=== PATIENT | female | born 1985 | race Caucasian/White ===

== ENCOUNTER 2016-07-19 23:47 | Emergency (ER) | payer MEDICARE, MEDICAID ==
[2016-07-20] MEDS ORDERED: ONDANSETRON 4 MG ORAL DISINTEGRATING TAB (S0181) As Ordered ONE (01:27)
[2016-07-20] MEDS ORDERED: KETOROLAC 30 MG/ML VIAL (J1885) As Ordered ONE (02:16)
[2016-07-20] MEDS ORDERED: diphenhydrAMINE 25 MG CAP As Ordered ONE (02:16)
--- NOTE | 2016-07-20 02:31 | EDDOCDS ---
Nurse's Notes [facility] Name: Maryjane Hutchinson Age: 31 yrs Sex: Female : 1985 Arrival Date: 07/19/2016 Time: 23:47 Bed I5 / M5 Private MD: [facility] - Adults Diagnosis: Nausea with vomiting, unspecified;Headache;Other chest pain-chest wall Presentation: 07/19 23:54 Presenting complaint: Patient states: Headache, vomiting, chest hurts, shaky. Adult [facility] Sepsis Screening: The patient does not have new or worsening altered mentation. Patient's respiratory rate is less than 22. Systolic blood pressure is greater than 100. Patient has a qSOFA score of 0- Negative Sepsis Screen. Suicide/Homicide risk assessment- the patient denies having any suicidal and/or homicidal ideations and does not present with any other emotional, behavioral or mental health complaints. Status: Patient is not a social service coordinator or dependent. Transition of care: patient was not received from another setting of care. 23:54 Acuity: BRENT Level 4 [facility] 23:54 Method Of Arrival: Walkin/Carried/Asstd [facility] Triage Assessment: 23:56 General: Appears uncomfortable, Behavior is cooperative. Pain: Location: head Pain mcp currently is 8 out of 10 on a pain scale. HIV screening NA for this visit Offered previously. Neurological: Reports headache. Respiratory: Airway is patent Respiratory effort is even, unlabored. GI: Reports nausea, vomiting. Derm: Skin is pink, warm & dry. 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 albuterol sulfate 90 mcg/actuation Inhl HFAA 1 puff every 4-6 hours as needed as needed - PMHx: Asthma; Bipolar disorder; - PSHx: Cholecystectomy; - Social history: Smoking status: Patient states was never smoker of tobacco. No barriers to communication noted, The patient speaks fluent Senegalese. - Family history: No immediate family members are acutely ill. - : The pt / caregiver states he / she is not on anticoagulants. Home medication list is obtained from the patient. - Exposure Risk Screening:: None identified. Screenin/05 02:29 Screening information is obtained from the patient. Fall risk: No risks identified. ld5 Assistance ADL's: requires no assistance with activities of daily living. Abuse/DV Screen: The patient / caregiver reports he/she is: not in a situation that causes fear, pain or injury. Nutritional screening: No deficits noted. Advance Directives: Currently, there is no health care proxy. home support is adequate. Assessment: 01:30 General: Appears in no apparent distress. Pain: Location: head Pain currently is 6 out ld5 of 10 on a pain scale. Neurological: Level of Consciousness is awake, obeys commands, Reports headache. Respiratory: Airway is patent Respiratory effort is even, unlabored. GI: Abdomen is non- distended Bowel sounds present X 4 quads. Abd is soft and non tender X 4 quads. Reports nausea. Derm: Skin is intact. 01:46 General: Pt sitting up in bed playing on phone. Water provided. Will monitor to assess ld5 tolerance. 02:29 General: Appears in no apparent distress, Pt reports decreased nausea. Pt declined ld5 Toradol injection. Provider aware. Vital Signs: 07/19 23:49 BP 116 / 79; Pulse 98; Resp 18 S; Temp 96.8(O); Pulse Ox 94% on R/A; Weight 81.65 kg gr2 (R); Height 5 ft. 4 in. (162.56 cm) (R); Pain 7/10; 0205 02:29 BP 121 / 81; Pulse 81; Resp 16; Temp 98; Pulse Ox 95% on R/A; ld5 07/19 23:49 Body Mass Index 30.90 (81.65 kg, 162.56 cm) gr2 Vitals: 07/19 23:49 Log In Time: July 19, 2016 at 23:49. gr2 ED Course: 23:48 Patient visited by Jhon Anderson. gr2 23:48 [facility] - [facility] is Private Physician. gr2 23:48 Patient moved to Waiting gr2 23:51 Patient visited by Jhon Anderson. gr2 23:51 Patient moved to Pre RCE gr2 23:55 Triage Initiated [facility] 23:56 Patient visited by Malaika Martinez RN. [facility] 07/20 00:01 Patient moved to MTA Wait cz 01:08 Patient moved to I5 / M5 cz 01:12 Sondra Velasco PA-C is PHCP. dt4 01:12 Ruiz Merchant DO is Attending Physician. dt4 01:12 Patient visited by Sondra Velasco PA-C. dt4 01:28 Patient visited by Melissa Odell PCA. cln 01:28 EKG done. (by ED staff). Reviewed by Sondra Velasco PA-C. cln 01:31 Patient visited by Shonda Hernandez RN. ld5 01:46 [facility] Payment Agreement was scanned into [employer] and attached to record. pm4 01:47 Patient visited by Shonda Hernandez RN. ld5 02:29 The patient / caregiver is instructed regarding the plan of care and ED course. Patient ld5 has correct armband on for positive identification. 02:29 No IV's were initiated during this patient's visit. No procedures done that require ld5 assistance. 02:31 Patient visited by Shonda Hernandez RN. ld5 Administered Medications: 01:29 Drug: Ondansetron ODT 4 mg [ondansetron 4 mg disintegrating tablet (1 tabs)] Route: PO; ld5 02:18 Drug: diphenhydrAMINE 25 mg [diphenhydramine 25 mg capsule (1 caps)] Route: PO; cz 02:21 Not Given (Patient Refused): ketorolac 60 mg IM once cz Order Results: There are currently no results for this order. Outcome: 02:24 Discharge ordered by Provider. dt4 02:29 Discharge Assessment: Patient awake, alert and oriented x 3. No cognitive and/or ld5 functional deficits noted. Patient verbalized understanding of disposition instructions. patient administered narcotics - no. The following High Risk Discharge criteria are identified: None. Discharged to home ambulatory, with family. Condition: stable. Discharge instructions given to patient, family, Instructed on discharge instructions, follow up and referral plans. medication usage, Demonstrated understanding of instructions, medications, Pt was receptive of discharge instructions/ teaching. Prescriptions given X 1. No special radiology studies were completed. Property :Personal belongings accompany Pt. 02:31 Patient left the ED. ld5 Signatures: Malaika Martinez RN RN mcp Zecher, Calvin, RN RN cz Dickerson, Laura, RN RN ld5 Jhon Anderson gr2 Sondra Velasco PA-C PA-C dt4 Jose R Melissa, SPRAY CEMENTER SPRAY CEMENTER cln Phillip Mcdonnell, Reg Reg pm4 MTDD
--- NOTE | 2016-07-20 02:31 | EDDOCDS ---
Physician Documentation [facility] Name: Maryjane Hutchinson Age: 31 yrs Sex: Female : 1985 Arrival Date: 07/19/2016 Time: 23:47 Bed I5 / M5 Private MD: [facility] - Adults Disposition: 07/20/16 02:24 Discharged to Home/Self Care. Impression: Nausea with vomiting, unspecified, Headache, Other chest pain - chest wall. - Condition is Stable. - Discharge Instructions: General Headache Without Cause, Nausea and Vomiting. - Prescriptions for ZOFRAN ODT 4 mg Oral - dissolve 1 tablet by ORAL route 3-4 times daily As needed do not chew, do not swallow whole; 20 tablet. - Medication Reconciliation, Local Pharmacy Hours form. - Follow up: Emergency Department; When: As needed; Reason: Worsening of conditions. Follow up: Private Physician; When: 2 - 3 days; Reason: Wound/Symptom Recheck, Recheck today's complaints, Continuance of care. - Problem is new. - Symptoms have improved. Historical: - Allergies: PENICILLINS (Hives); Tape; - Home Meds: 1. albuterol sulfate 90 mcg/actuation Inhl HFAA 1 puff every 4-6 hours as needed as needed - PMHx: Asthma; Bipolar disorder; - PSHx: Cholecystectomy; - Social history: Smoking status: Patient states was never smoker of tobacco. No barriers to communication noted, The patient speaks fluent Uzbek. - Family history: No immediate family members are acutely ill. - : The pt / caregiver states he / she is not on anticoagulants. Home medication list is obtained from the patient. - Exposure Risk Screening:: None identified. 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 4 in. (162.56 cm) (R); Pain 7/10; 07/20 02:29 BP 121 / 81; Pulse 81; Resp 16; Temp 98; Pulse Ox 95% on R/A; ld5 07/19 23:49 Body Mass Index 30.90 (81.65 kg, 162.56 cm) gr2 MDM: 01:21 Ondansetron ODT Oral Disintegrating Tablet 4 mg PO once ordered. dt4 01:21 ECG WITH READING ER PHYS+CARDIAG ordered. EDMS 01:39 Fluid Challenge ordered. dt4 01:40 Financial registration complete. pm4 01:46 [facility] Payment Agreement was scanned into [employer] and attached to record. pm4 02:09 ketorolac 60 mg IM once ordered. dt4 02:09 diphenhydrAMINE 25 mg PO once ordered. dt4 Administered Medications: 01:29 Drug: Ondansetron ODT 4 mg [ondansetron 4 mg disintegrating tablet (1 tabs)] Route: PO; ld5 02:18 Drug: diphenhydrAMINE 25 mg [diphenhydramine 25 mg capsule (1 caps)] Route: PO; cz 02:21 Not Given (Patient Refused): ketorolac 60 mg IM once cz Signatures: Dispatcher [employer] EDMS Malaika Martinez RN RN [facility] Shonda Hernandez RN RN ld5 Sondra Velasco, PANaty PA-C dt4 Phillip Mcdonnell, Anatoly Reg pm4 German Ko RN cz The chart was reviewed and I authenticate all verbal orders and agree with the evaluation and treatment provided.Attachments: 01:46 [facility] Payment Agreement pm4 MTDD
--- NOTE | 2016-07-20 06:42 | ECGEPIP ---
Stationary ECG Study 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
--- NOTE | 2016-07-22 03:32 | EDDOCDS ---
Physician Documentation [facility] Name: Maryjane Hutchinson Age: 31 yrs Sex: Female : 1985 Arrival Date: 07/19/2016 Time: 23:47 Bed I5 / M5 Private MD: [facility] - Adults Disposition: 07/20/16 02:24 Discharged to Home/Self Care. Impression: Nausea with vomiting, unspecified, Headache, Other chest pain - chest wall. - Condition is Stable. - Discharge Instructions: General Headache Without Cause, Nausea and Vomiting. - Prescriptions for ZOFRAN ODT 4 mg Oral - dissolve 1 tablet by ORAL route 3-4 times daily As needed do not chew, do not swallow whole; 20 tablet. - Medication Reconciliation, Local Pharmacy Hours form. - Follow up: Emergency Department; When: As needed; Reason: Worsening of conditions. Follow up: Private Physician; When: 2 - 3 days; Reason: Wound/Symptom Recheck, Recheck today's complaints, Continuance of care. - Problem is new. - Symptoms have improved. Historical: - Allergies: PENICILLINS (Hives); Tape; - Home Meds: 1. albuterol sulfate 90 mcg/actuation Inhl HFAA 1 puff every 4-6 hours as needed as needed - PMHx: Asthma; Bipolar disorder; - PSHx: Cholecystectomy; - Social history: Smoking status: Patient states was never smoker of tobacco. No barriers to communication noted, The patient speaks fluent Upper Sorbian. - Family history: No immediate family members are acutely ill. - : The pt / caregiver states he / she is not on anticoagulants. Home medication list is obtained from the patient. - Exposure Risk Screening:: None identified. 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 4 in. (162.56 cm) (R); Pain 7/10; 07/20 02:29 BP 121 / 81; Pulse 81; Resp 16; Temp 98; Pulse Ox 95% on R/A; ld5 02/04 23:49 Body Mass Index 30.90 (81.65 kg, 162.56 cm) gr2 MDM: 01:21 Ondansetron ODT Oral Disintegrating Tablet 4 mg PO once ordered. dt4 01:21 ECG WITH READING ER PHYS+CARDIAG ordered. EDMS 01:39 Fluid Challenge ordered. dt4 01:40 Financial registration complete. pm4 01:46 [facility] Payment Agreement was scanned into [employer] and attached to record. pm4 02:09 ketorolac 60 mg IM once ordered. dt4 02:09 diphenhydrAMINE 25 mg PO once ordered. dt4 11:01 T-Sheet-- Draft Copy was scanned into [employer] and attached to record. gb 11:01 ECG/EKG was scanned into [employer] and attached to record. gb Administered Medications: 01:29 Drug: Ondansetron ODT 4 mg [ondansetron 4 mg disintegrating tablet (1 tabs)] Route: PO; ld5 02:18 Drug: diphenhydrAMINE 25 mg [diphenhydramine 25 mg capsule (1 caps)] Route: PO; cz 02:21 Not Given (Patient Refused): ketorolac 60 mg IM once cz Signatures: Dispatcher [employer] EDMS Malaika Martinez, RN RN [facility] Linda Bolden, Reg Reg gb Shonda Hernandez RN RN ld5 Sondra Velasco, CLARA PANaty dt4 Phillip Mcdonnell, Reg Reg pm4 German Ko RN cz The chart was reviewed and I authenticate all verbal orders and agree with the evaluation and treatment provided.Attachments: 01:46 [facility] Payment Agreement pm4 11:01 T-Sheet-- Draft Copy gb 11:01 ECG/EKG gb Chart Complete MTDD
--- NOTE | 2016-07-22 03:32 | EDDOCDS ---
Nurse's Notes [facility] Name: Maryjane Hutchinson Age: 31 yrs Sex: Female : 1985 Arrival Date: 07/19/2016 Time: 23:47 Bed I5 / M5 Private MD: [facility] - Adults Diagnosis: Nausea with vomiting, unspecified;Headache;Other chest pain-chest wall Presentation: 07/19 23:54 Presenting complaint: Patient states: Headache, vomiting, chest hurts, shaky. Adult [facility] Sepsis Screening: The patient does not have new or worsening altered mentation. Patient's respiratory rate is less than 22. Systolic blood pressure is greater than 100. Patient has a qSOFA score of 0- Negative Sepsis Screen. Suicide/Homicide risk assessment- the patient denies having any suicidal and/or homicidal ideations and does not present with any other emotional, behavioral or mental health complaints. Status: Patient is not a member service representative or dependent. Transition of care: patient was not received from another setting of care. 23:54 Acuity: BRENT Level 4 [facility] 23:54 Method Of Arrival: Walkin/Carried/Asstd [facility] Triage Assessment: 23:56 General: Appears uncomfortable, Behavior is cooperative. Pain: Location: head Pain mcp currently is 8 out of 10 on a pain scale. HIV screening NA for this visit Offered previously. Neurological: Reports headache. Respiratory: Airway is patent Respiratory effort is even, unlabored. GI: Reports nausea, vomiting. Derm: Skin is pink, warm & dry. 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 albuterol sulfate 90 mcg/actuation Inhl HFAA 1 puff every 4-6 hours as needed as needed - PMHx: Asthma; Bipolar disorder; - PSHx: Cholecystectomy; - Social history: Smoking status: Patient states was never smoker of tobacco. No barriers to communication noted, The patient speaks fluent Cymro. - Family history: No immediate family members are acutely ill. - : The pt / caregiver states he / she is not on anticoagulants. Home medication list is obtained from the patient. - Exposure Risk Screening:: None identified. Screenin/05 02:29 Screening information is obtained from the patient. Fall risk: No risks identified. ld5 Assistance ADL's: requires no assistance with activities of daily living. Abuse/DV Screen: The patient / caregiver reports he/she is: not in a situation that causes fear, pain or injury. Nutritional screening: No deficits noted. Advance Directives: Currently, there is no health care proxy. home support is adequate. Assessment: 01:30 General: Appears in no apparent distress. Pain: Location: head Pain currently is 6 out ld5 of 10 on a pain scale. Neurological: Level of Consciousness is awake, obeys commands, Reports headache. Respiratory: Airway is patent Respiratory effort is even, unlabored. GI: Abdomen is non- distended Bowel sounds present X 4 quads. Abd is soft and non tender X 4 quads. Reports nausea. Derm: Skin is intact. 01:46 General: Pt sitting up in bed playing on phone. Water provided. Will monitor to assess ld5 tolerance. 02:29 General: Appears in no apparent distress, Pt reports decreased nausea. Pt declined ld5 Toradol injection. Provider aware. Vital Signs: 07/19 23:49 BP 116 / 79; Pulse 98; Resp 18 S; Temp 96.8(O); Pulse Ox 94% on R/A; Weight 81.65 kg gr2 (R); Height 5 ft. 4 in. (162.56 cm) (R); Pain 7/10; 0205 02:29 BP 121 / 81; Pulse 81; Resp 16; Temp 98; Pulse Ox 95% on R/A; ld5 07/19 23:49 Body Mass Index 30.90 (81.65 kg, 162.56 cm) gr2 Vitals: 07/19 23:49 Log In Time: July 19, 2016 at 23:49. gr2 ED Course: 23:48 Patient visited by Jhon Anderson. gr2 23:48 [facility] - Adults is Private Physician. gr2 23:48 Patient moved to Waiting gr2 23:51 Patient visited by Jhon Anderson. gr2 23:51 Patient moved to Pre RCE gr2 23:55 Triage Initiated [facility] 23:56 Patient visited by Malaika Martinez RN. [facility] 07/20 00:01 Patient moved to MTA Wait cz 01:08 Patient moved to I5 / M5 cz 01:12 Courtney eVlasco PA-C is PHCP. dt4 01:12 Ruiz Merchant DO is Attending Physician. dt4 01:12 Patient visited by Courtney Velasco PA-C. dt4 01:28 Patient visited by Melissa Odell PCA. cln 01:28 EKG done. (by ED staff). Reviewed by Courtney Velasco PA-C. cln 01:31 Patient visited by Shonda Hernandez RN. ld5 01:46 [facility] Payment Agreement was scanned into [email or web address] and attached to record. pm4 01:47 Patient visited by Shonda Hernandez RN. ld5 02:29 The patient / caregiver is instructed regarding the plan of care and ED course. Patient ld5 has correct armband on for positive identification. 02:29 No IV's were initiated during this patient's visit. No procedures done that require ld5 assistance. 02:31 Patient visited by Shonda Hernandez RN. ld5 06:54 EKG-ADULT Returned. EDMS 11:01 T-Sheet-- Draft Copy was scanned into [email or web address] and attached to record. gb 11:01 ECG/EKG was scanned into [email or web address] and attached to record. 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 dt4 02:29 Discharge Assessment: Patient awake, alert and oriented x 3. No cognitive and/or ld5 functional deficits noted. Patient verbalized understanding of disposition instructions. patient administered narcotics - no. The following High Risk Discharge criteria are identified: None. Discharged to home ambulatory, with family. Condition: stable. Discharge instructions given to patient, family, Instructed on discharge instructions, follow up and referral plans. medication usage, Demonstrated understanding of instructions, medications, Pt was receptive of discharge instructions/ teaching. Prescriptions given X 1. No special radiology studies were completed. Property :Personal belongings accompany Pt. 02:31 Patient left the ED. ld5 Signatures: Dispatcher [employer] EDMS Malaika Martinez, RN RN German Buckley RN RN cz Barnhardt, Gloria, Reg Reg gb Shonda Hernandez RN RN ld5 Jhon Anderson gr2 Courtney Velasco, PA-Raji PA-C dt4 Melissa Odell, BALL MACHINE OPERATOR BALL MACHINE OPERATOR cln Phillip Mcdonnell, Reg Reg pm4 Chart Complete MTDD
--- NOTE | 2016-07-22 03:32 | EDDOCDS ---
Physician Documentation [facility] Name: Maryjane Hutchinson Age: 31 yrs Sex: Female : 1985 Arrival Date: 07/19/2016 Time: 23:47 Bed I5 / M5 Private MD: [facility] - Adults Disposition: 07/20/16 02:24 Discharged to Home/Self Care. Impression: Nausea with vomiting, unspecified, Headache, Other chest pain - chest wall. - Condition is Stable. - Discharge Instructions: General Headache Without Cause, Nausea and Vomiting. - Prescriptions for ZOFRAN ODT 4 mg Oral - dissolve 1 tablet by ORAL route 3-4 times daily As needed do not chew, do not swallow whole; 20 tablet. - Medication Reconciliation, Local Pharmacy Hours form. - Follow up: Emergency Department; When: As needed; Reason: Worsening of conditions. Follow up: Private Physician; When: 2 - 3 days; Reason: Wound/Symptom Recheck, Recheck today's complaints, Continuance of care. - Problem is new. - Symptoms have improved. Historical: - Allergies: PENICILLINS (Hives); Tape; - Home Meds: 1. albuterol sulfate 90 mcg/actuation Inhl HFAA 1 puff every 4-6 hours as needed as needed - PMHx: Asthma; Bipolar disorder; - PSHx: Cholecystectomy; - Social history: Smoking status: Patient states was never smoker of tobacco. No barriers to communication noted, The patient speaks fluent Wolof. - Family history: No immediate family members are acutely ill. - : The pt / caregiver states he / she is not on anticoagulants. Home medication list is obtained from the patient. - Exposure Risk Screening:: None identified. 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 4 in. (162.56 cm) (R); Pain 7/10; 07/20 02:29 BP 121 / 81; Pulse 81; Resp 16; Temp 98; Pulse Ox 95% on R/A; ld5 02/04 23:49 Body Mass Index 30.90 (81.65 kg, 162.56 cm) gr2 MDM: 01:21 Ondansetron ODT Oral Disintegrating Tablet 4 mg PO once ordered. dt4 01:21 ECG WITH READING ER PHYS+CARDIAG ordered. EDMS 01:39 Fluid Challenge ordered. dt4 01:40 Financial registration complete. pm4 01:46 [facility] Payment Agreement was scanned into [employer] and attached to record. pm4 02:09 ketorolac 60 mg IM once ordered. dt4 02:09 diphenhydrAMINE 25 mg PO once ordered. dt4 11:01 T-Sheet-- Draft Copy was scanned into [employer] and attached to record. gb 11:01 ECG/EKG was scanned into [employer] and attached to record. gb Administered Medications: 01:29 Drug: Ondansetron ODT 4 mg [ondansetron 4 mg disintegrating tablet (1 tabs)] Route: PO; ld5 02:18 Drug: diphenhydrAMINE 25 mg [diphenhydramine 25 mg capsule (1 caps)] Route: PO; cz 02:21 Not Given (Patient Refused): ketorolac 60 mg IM once cz Signatures: Dispatcher [employer] EDMS Malaika Martinez, RN RN [facility] Linda Bolden, Reg Reg gb Shonda Hernandez RN RN ld5 Sondra Velasco, CLARA PANaty dt4 Phillip Mcdonnell, Reg Reg pm4 German Ko RN cz The chart was reviewed and I authenticate all verbal orders and agree with the evaluation and treatment provided.Attachments: 01:46 [facility] Payment Agreement pm4 11:01 T-Sheet-- Draft Copy gb 11:01 ECG/EKG gb Chart Complete MTDD
== END 2016-07-20 02:31 | disposition home or self-care (01) ==
LOC: M ED 23:47
DX: R51 Headache (principal); R11.2 Nausea with vomiting, unspecified; R07.89 Other chest pain; J45.909 Unspecified asthma, uncomplicated; F31.9 Bipolar disorder, unspecified; Z90.49 Acquired absence of other specified parts of digestive tract; Z88.0 Allergy status to penicillin; Z91.09 Other allergy status, other than to drugs and biological substances
CPT/HCPCS: 93005; 99284; J1885

== ENCOUNTER 2016-10-14 18:49 | Emergency (ER) | payer MEDICARE, MEDICAID ==
[~2016-10-14] VITALS: Ht 162.6 cm; Wt 90.7 kg
[2016-10-14] MEDS ORDERED: PROA1AER (18:56)
[2016-10-14] MEDS ORDERED: INDOMETHACIN 25 MG CAP PO ONE (19:30)
[2016-10-14] MEDS ORDERED: ONDANSETRON 4 MG ORAL DISINTEGRATING TAB (S0181) PO ONE (19:30)
[2016-10-14] MEDS ORDERED: MAGNESIUM OXIDE 400 MG TAB (MAG-OX) PO ONE (19:30)
[2016-10-14] MEDS ORDERED: INDO25CA PO (19:40)
[2016-10-14 19:55] VITALS: BP 114/64
== END 2016-10-14 19:56 | disposition home or self-care (01) ==
LOC: M ED 19:29
DX: G43.909 Migraine, unspecified, not intractable, without status migrainosus (principal)

== ENCOUNTER → 2016-11-28 | Outpatient (CLI) | payer MEDICARE, MEDICAID ==
[~2016-11-28] MED LIST: INDO25CA PO; LITH300C PO; PROA1AER; TRAZ150T14 PO
== END ==
LOC: M LAB 10:52
PROVIDERS: ATTEND Nurse Practitioner Psychiatric/Mental Health
DX: F31.62 Bipolar disorder, current episode mixed, moderate (principal)

== ENCOUNTER 2016-11-29 23:54 | Emergency (ER) | payer MEDICARE, MEDICAID ==
[~2016-11-29] VITALS: Ht 162.6 cm; Wt 98.2 kg
[~2016-11-29 23:54] MED LIST changes: -LITH300C PO; -PROA1AER; +PROAAER10; -TRAZ150T14 PO
[2016-11-30] MEDS ORDERED: TRAZ1TAB14 PO (00:10)
[2016-11-30] MEDS ORDERED: LITH300C PO (00:10)
[2016-11-30 00:45] LABS: BASO # 0.1 K/mm3 (0.0-0.2); BASO % 0.6 % (0.0-1.0); EOS # 0.2 K/mm3 (0.0-0.50); EOS % 1.3 % (0.0-3.0); LARGE UNSTAINED CELL # 0.1 K/mm3 (0.0-0.4); LARGE UNSTAINED CELL % 0.7 % (0.0-4.0); LYMPH # 2.7 K/mm3 (1.5-4.5); LYMPH % 23.2 % (24.0-44.0); MEAN CORPUSCULAR HEMOGLOBIN 26.3 pg (27.0-33.0); MEAN CORPUSCULAR HGB CONC 32.7 g/dl (32.0-36.5); MEAN CORPUSCULAR VOLUME 80.6 fl (80.0-96.0); MONO # 0.5 K/mm3 (0.0-0.8); MONO % 3.9 % (0.0-5.0); NEUTROPHILS # 8.2 K/mm3 (1.8-7.7); NEUTROPHILS % 70.4 % (36.0-66.0); PLATELET COUNT, AUTOMATED 266 k/mm3 (150-450); WHITE BLOOD COUNT 11.6 K/mm3 (4.0-10.0)
[2016-11-30] MEDS ORDERED: NS 1,000 ML IV ONE (00:45)
[2016-11-30] MEDS ORDERED: KETOROLAC 30 MG/ML VIAL (J1885) IV ONE (00:45)
[2016-11-30 01:04] LABS: CONTROL LINE HCG INT CTR LINE PRESENT
[2016-11-30 01:16] LABS: ANION GAP 7 MEQ/L (8-16); BLOOD UREA NITROGEN 11 MG/DL (7-18); CALCIUM LEVEL 8.9 MG/DL (8.5-10.1); CARBON DIOXIDE LEVEL 29 MEQ/L (21-32); CHLORIDE LEVEL 106 MEQ/L (98-107); CREATININE FOR GFR 0.88 MG/DL (0.55-1.02); GLOMERULAR FILTRATION RATE > 60.0 (>60); GLUCOSE, FASTING 91 MG/DL (70-105); POTASSIUM SERUM 3.5 MEQ/L (3.5-5.1); SODIUM LEVEL 142 MEQ/L (136-145)
[2016-11-30 03:42] VITALS: BP 110/77
--- NOTE | 2016-11-30 08:31 | REP ---
Portable chest: Single view. History: Chest pain. Comparison study: October 09, 2015 Findings: The lungs are symmetrically aerated and free of infiltrate. Pleural angles are sharp. Cardiomediastinal silhouette is unremarkable. EKG monitoring electrodes overlie the chest. Impression: No active disease. Signed by Wilder Nichols MD 11/30/2016 08:22 A
--- NOTE | 2016-12-02 08:39 | ECGEPIP ---
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
== END 2016-11-30 04:06 | disposition home or self-care (01) ==
LOC: EDBD 23:54 → M ED 11-30 01:04
DX: R07.89 Other chest pain (principal)
CPT/HCPCS: 71010; 80048; 82550; 82553; 84484; 84703; 85025; 93005; 93041; 94760; 96361; 96374; 99285; J1885

== ENCOUNTER 2017-01-12 20:10 | Emergency (ER) | payer MEDICARE, MEDICAID ==
[~2017-01-12] VITALS: Ht 162.6 cm; Wt 95.0 kg
[~2017-01-12 20:10] MED LIST changes: +LITH300C PO; +TRAZ1TAB14 PO
[2017-01-12 20:12] VITALS: BP 151/88
[2017-01-12] MEDS ORDERED: NS 1,000 ML IV ONE (21:30)
[2017-01-12] MEDS ORDERED: ONDANSETRON 4MG/2ML VIAL (J2405) IV ONE (21:30)
[2017-01-12] MEDS ORDERED: ACETAMINOPHEN 325 MG TAB PO ONE (21:30)
[2017-01-12 21:59] LABS: ANION GAP 9 MEQ/L (8-16); BLOOD UREA NITROGEN 9 MG/DL (7-18); CALCIUM LEVEL 8.7 MG/DL (8.5-10.1); CARBON DIOXIDE LEVEL 29 MEQ/L (21-32); CHLORIDE LEVEL 100 MEQ/L (98-107); CREATININE FOR GFR 0.81 MG/DL (0.55-1.02); GLOMERULAR FILTRATION RATE > 60.0 (>60); GLUCOSE, FASTING 115 MG/DL (70-105); POTASSIUM SERUM 3.6 MEQ/L (3.5-5.1); SODIUM LEVEL 138 MEQ/L (136-145)
--- NOTE | 2017-01-12 22:10 | ECGEPIP ---
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
[2017-01-12 22:25] LABS: BASO % 0.5 % (0.0-1.0); EOS # 0.1 K/mm3 (0.0-0.50); EOS % 0.9 % (0.0-3.0); LARGE UNSTAINED CELL # 0.1 K/mm3 (0.0-0.4); LARGE UNSTAINED CELL % 1.4 % (0.0-4.0); LYMPH % 10.8 % (24.0-44.0); MEAN CORPUSCULAR HEMOGLOBIN 27.1 pg (27.0-33.0); MEAN CORPUSCULAR VOLUME 79.7 fl (80.0-96.0); MONO # 0.4 K/mm3 (0.0-0.8); MONO % 4.4 % (0.0-5.0); NEUTROPHILS # 7.5 K/mm3 (1.8-7.7); NEUTROPHILS % 82.1 % (36.0-66.0); PLATELET COUNT, AUTOMATED 207 k/mm3 (150-450); RED CELL DISTRIBUTION WIDTH 14.2 % (11.5-14.5); WHITE BLOOD COUNT 9.2 K/mm3 (4.0-10.0)
[2017-01-12] MEDS ORDERED: METOCLOPRAMIDE INJ 10MG/2ML VIAL (J2765) IV ONE (23:15)
[2017-01-12] MEDS ORDERED: KETOROLAC 30 MG/ML VIAL (J1885) IV ONE (23:15)
[2017-01-12] MEDS ORDERED: ONDA4TAB6 PO (23:40)
--- NOTE | 2017-01-13 08:20 | REP ---
Chest two views HISTORY: Chest pain Comparison: 11/30/2016 The lungs are clear. The heart is normal in size. The pulmonary vasculature is normal in appearance. The bony structure is intact. IMPRESSION: No acute disease. Signed by Tereso Musa MD 01/13/2017 08:12 A
== END 2017-01-12 23:48 | disposition home or self-care (01) ==
LOC: M ED 20:10
DX: R11.2 Nausea with vomiting, unspecified (principal); E86.0 Dehydration; R51 Headache; Z87.891 Personal history of nicotine dependence
CPT/HCPCS: 71020; 80048; 80178; 82550; 82553; 84484; 85025; 93005; 96361; 96374; 96375; 99283; J1885; J2405; J2765

== ENCOUNTER 2017-02-01 15:07 | Emergency (ER) | payer MEDICARE, MEDICAID ==
[~2017-02-01] VITALS: Ht 162.6 cm; Wt 65.9 kg
[~2017-02-01 15:07] MED LIST changes: +ONDA4TAB6 PO
[2017-02-01] MEDS ORDERED: KETOROLAC 60 MG/2 ML VIAL (J1885) IM ONE (17:00)
[2017-02-01 17:45] VITALS: BP 115/68
[2017-02-01 18:03] LABS: BASO % 0.6 % (0.0-1.0); EOS # 0.2 K/mm3 (0.0-0.50); EOS % 2.7 % (0.0-3.0); LARGE UNSTAINED CELL # 0.1 K/mm3 (0.0-0.4); LARGE UNSTAINED CELL % 0.9 % (0.0-4.0); LYMPH % 24.6 % (24.0-44.0); MEAN CORPUSCULAR HEMOGLOBIN 26.2 pg (27.0-33.0); MEAN CORPUSCULAR HGB CONC 33.1 g/dl (32.0-36.5); MEAN CORPUSCULAR VOLUME 79.2 fl (80.0-96.0); MONO # 0.4 K/mm3 (0.0-0.8); MONO % 4.8 % (0.0-5.0); NEUTROPHILS # 5.2 K/mm3 (1.8-7.7); NEUTROPHILS % 66.4 % (36.0-66.0); PLATELET COUNT, AUTOMATED 251 k/mm3 (150-450); RED CELL DISTRIBUTION WIDTH 14.5 % (11.5-14.5); WHITE BLOOD COUNT 7.8 K/mm3 (4.0-10.0)
== END 2017-02-01 19:09 | disposition home or self-care (01) ==
LOC: M ED 15:07
DX: S20.229A Contusion of unspecified back wall of thorax, initial encounter (principal); Y04.0XXA Assault by unarmed brawl or fight, initial encounter; Y92.89 Other specified places as the place of occurrence of the external cause; Y93.89 Activity, other specified; Y99.9 Unspecified external cause status
CPT/HCPCS: 85025; 96372; 99282; J1885

== ENCOUNTER 2017-04-09 15:15 | Emergency (ER) | payer MEDICARE, MEDICAID ==
[~2017-04-09] VITALS: Ht 162.6 cm; Wt 65.9 kg
[2017-04-09] MEDS ORDERED: diphenhydrAMINE INJ 50MG/ML VIAL (J1200) IV ONE (15:45)
[2017-04-09] MEDS ORDERED: methylPREDNISolone INJ 125 MG/2 ML VIAL (J2930) IV ONE (15:45)
[2017-04-09] MEDS ORDERED: METOCLOPRAMIDE INJ 10MG/2ML VIAL (J2765) IV ONE (15:45)
[2017-04-09] MEDS ORDERED: NS 1,000 ML IV ONE (15:45)
[2017-04-09 16:08] LABS: BASO % 0.4 % (0.0-1.0); EOS # 0.2 10^3/uL (0.0-0.50); EOS % 2.3 % (0.0-3.0); IMMATURE GRANULOCYTE % 0.3 % (0-0); LYMPH # 2.1 10^3/uL (1.5-4.5); MEAN CORPUSCULAR HEMOGLOBIN 26.1 pg (27.0-33.0); MEAN CORPUSCULAR VOLUME 79.1 fl (80.0-96.0); MONO # 0.5 10^3/uL (0.0-0.8); MONO % 5.1 % (0.0-5.0); NEUTROPHILS # 6.8 10^3/uL (1.8-7.7); NEUTROPHILS % 69.9 % (36.0-66.0); PLATELET COUNT, AUTOMATED 253 10^3/uL (150-450); RED CELL DISTRIBUTION WIDTH 14.5 % (11.5-14.5); WHITE BLOOD COUNT 9.7 10^3/uL (4.0-10.0)
--- NOTE | 2017-04-09 16:17 | REP ---
CT brain without contrast: History: Diffuse nontraumatic headache. Comparison study: July 26, 2013. Findings: Bone window settings demonstrate an intact bony calvarium. 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 There is no evidence of paranasal sinus disease. Lateral, third, and fourth ventricles are normal in size and position. Aviles-white differentiation pattern is normal above and below the tentorium. There is no evidence of intracranial hemorrhage. No mass, infarction, extra-axial fluid collection or midline shift. Impression: Negative noncontrast brain CT. Signed by Wilder Nichols MD 04/09/2017 04:56 P
[2017-04-09 16:47] LABS: ANION GAP 5 MEQ/L (8-16); BLOOD UREA NITROGEN 12 MG/DL (7-18); CALCIUM LEVEL 8.7 MG/DL (8.5-10.1); CARBON DIOXIDE LEVEL 29 MEQ/L (21-32); CHLORIDE LEVEL 106 MEQ/L (98-107); CREATININE FOR GFR 0.64 MG/DL (0.55-1.02); GLOMERULAR FILTRATION RATE > 60.0 (>60); GLUCOSE, FASTING 93 MG/DL (70-105); SODIUM LEVEL 140 MEQ/L (136-145)
[2017-04-09] MEDS ORDERED: KETOROLAC 30 MG/ML VIAL (J1885) IV ONE (17:00)
[2017-04-09 17:34] VITALS: BP 133/84
== END 2017-04-09 17:35 | disposition home or self-care (01) ==
LOC: M ED 15:15
DX: G43.909 Migraine, unspecified, not intractable, without status migrainosus (principal); Z72.0 Tobacco use
CPT/HCPCS: 70450; 80048; 85025; 86140; 96374; 96375; 99284; J1200; J1885; J2765; J2930

== ENCOUNTER 2017-06-07 07:29 | Emergency (ER) | payer MEDICARE, MEDICAID ==
[2017-06-07] MEDS: diphenhydrAMINE INJ 50MG/ML VIAL (J1200) IV (08:30)
[2017-06-07] MEDS: NS 1,000 ML IV (08:30)
[2017-06-07] MEDS: KETOROLAC 30 MG/ML VIAL (J1885) IV (08:32)
[2017-06-07] MEDS: METOCLOPRAMIDE INJ 10MG/2ML VIAL (J2765) IV (08:34)
== END 2017-06-07 10:07 | disposition home or self-care (01) ==
LOC: M ED 07:29
DX: G43.909 Migraine, unspecified, not intractable, without status migrainosus (principal); F41.1 Generalized anxiety disorder
CPT/HCPCS: J1200

== ENCOUNTER 2017-06-20 09:49 | Emergency (ER) | payer MEDICARE, MEDICAID ==
[2017-06-20] MEDS: NORCO, ANEXSIA 5/325MG TABLET (HYDROcodone/ACETAMINOPHEN) PO (10:15)
[2017-06-20] MEDS: CYCLOBENZAPRINE 5MG TABLET PO (10:15)
== END 2017-06-20 10:39 | disposition home or self-care (01) ==
LOC: M ED 09:49
DX: S00.81XA Abrasion of other part of head, initial encounter (principal); S30.0XXA Contusion of lower back and pelvis, initial encounter; W00.1XXA Fall from stairs and steps due to ice and snow, initial encounter; Y92.018 Other place in single-family (private) house as the place of occurrence of the external cause; Y93.89 Activity, other specified; Y99.8 Other external cause status; J45.909 Unspecified asthma, uncomplicated; F43.10 Post-traumatic stress disorder, unspecified; F31.9 Bipolar disorder, unspecified; Z88.0 Allergy status to penicillin
CPT/HCPCS: 70450

== ENCOUNTER 2017-08-13 20:40 | Emergency (ER) | payer MEDICARE, MEDICAID ==
[2017-08-14] MEDS ORDERED: KETOROLAC 30 MG/ML VIAL (J1885) IV (00:45)
[2017-08-14] MEDS: NS 1,000 ML IV (00:45)
[2017-08-14] MEDS: KETOROLAC 30 MG/ML VIAL (J1885) IV (00:45)
[2017-08-14] MEDS: METOCLOPRAMIDE INJ 10MG/2ML VIAL (J2765) IV (00:45)
[2017-08-14] MEDS: diphenhydrAMINE INJ 50MG/ML VIAL (J1200) IV (01:00)
[2017-08-14 01:23] LABS: BASO % 0.4 % (0.0-1.0); EOS # 0.1 10^3/uL (0.0-0.50); EOS % 0.9 % (0.0-3.0); HEMATOCRIT 41.2 % (36.0-47.0); HEMOGLOBIN 13.6 g/dl (12.0-16.0); IMMATURE GRANULOCYTE % 0.5 % (0-3.0); LYMPH # 2.6 10^3/uL (1.5-4.5); MEAN CORPUSCULAR HEMOGLOBIN 26.3 pg (27.0-33.0); MEAN CORPUSCULAR VOLUME 79.5 fl (80.0-96.0); MONO # 0.6 10^3/uL (0.0-0.8); MONO % 5.7 % (0.0-5.0); NEUTROPHILS # 6.6 10^3/uL (1.8-7.7); NEUTROPHILS % 66.5 % (36.0-66.0); PLATELET COUNT, AUTOMATED 249 10^3/uL (150-450); RED BLOOD COUNT 5.18 10^6/uL (4.00-5.40); RED CELL DISTRIBUTION WIDTH 13.8 % (11.5-14.5); WHITE BLOOD COUNT 9.9 10^3/uL (4.0-10.0)
[2017-08-14 01:39] LABS: ANION GAP 7 MEQ/L (8-16); BLOOD UREA NITROGEN 11 MG/DL (7-18); CALCIUM LEVEL 8.8 MG/DL (8.5-10.1); CARBON DIOXIDE LEVEL 28 MEQ/L (21-32); CHLORIDE LEVEL 106 MEQ/L (98-107); CREATININE FOR GFR 0.66 MG/DL (0.55-1.30); GLOMERULAR FILTRATION RATE > 60.0 (>60); GLUCOSE, FASTING 100 MG/DL (70-100); POTASSIUM SERUM 3.8 MEQ/L (3.5-5.1); SODIUM LEVEL 141 MEQ/L (136-145)
[2017-08-14 01:46] LABS: LITHIUM LEVEL < 0.20 MEQ/L (0.60-1.20)
== END 2017-08-14 02:22 | disposition home or self-care (01) ==
LOC: M ED 20:40
DX: G43.909 Migraine, unspecified, not intractable, without status migrainosus (principal); J45.909 Unspecified asthma, uncomplicated; F41.9 Anxiety disorder, unspecified; F33.9 Major depressive disorder, recurrent, unspecified; Z88.0 Allergy status to penicillin
CPT/HCPCS: J1200

== ENCOUNTER 2017-08-30 17:20 | Emergency (ER) | payer MEDICARE, MEDICAID ==
[2017-08-30] MEDS: KETOROLAC 60 MG/2 ML VIAL (J1885) IM (18:12)
== END 2017-08-30 19:20 | disposition home or self-care (01) ==
LOC: M ED 17:20
DX: S39.002A Unspecified injury of muscle, fascia and tendon of lower back, initial encounter (principal); W22.8XXA Striking against or struck by other objects, initial encounter; Y92.018 Other place in single-family (private) house as the place of occurrence of the external cause; Z88.0 Allergy status to penicillin
CPT/HCPCS: J1885

== ENCOUNTER 2017-10-08 18:26 | Emergency (ER) | payer MEDICARE, MEDICAID ==
[2017-10-08] MEDS: NAPROXEN 250 MG TAB PO (22:00)
== END 2017-10-08 22:05 | disposition home or self-care (01) ==
LOC: M ED 18:26
DX: S43.422A Sprain of left rotator cuff capsule, initial encounter (principal); X50.0XXA Overexertion from strenuous movement or load, initial encounter; Y92.830 Public park as the place of occurrence of the external cause; Z88.0 Allergy status to penicillin
CPT/HCPCS: 73030

== ENCOUNTER 2017-10-24 12:01 | Emergency (ER) | payer MEDICARE, MEDICAID ==
[2017-10-24] MEDS: NS 1,000 ML IV (12:47)
[2017-10-24] MEDS: METOCLOPRAMIDE INJ 10MG/2ML VIAL (J2765) IV (12:48)
[2017-10-24] MEDS: KETOROLAC 30 MG/ML VIAL (J1885) IV (12:48)
[2017-10-24 12:59] LABS: BASO % 0.5 % (0.0-1.0); EOS # 0.2 10^3/uL (0.0-0.50); HEMATOCRIT 37.9 % (36.0-47.0); HEMOGLOBIN 12.8 g/dl (12.0-15.5); IMMATURE GRANULOCYTE % 0.2 % (0-3.0); LYMPH # 2.1 10^3/uL (1.5-4.5); LYMPH % 25.7 % (24.0-44.0); MEAN CORPUSCULAR HEMOGLOBIN 26.9 pg (27.0-33.0); MEAN CORPUSCULAR HGB CONC 33.8 g/dl (32.0-36.5); MEAN CORPUSCULAR VOLUME 79.8 fl (80.0-96.0); MONO # 0.4 10^3/uL (0.0-0.8); MONO % 4.7 % (0.0-5.0); NEUTROPHILS # 5.4 10^3/uL (1.8-7.7); NEUTROPHILS % 66.9 % (36.0-66.0); PLATELET COUNT, AUTOMATED 216 10^3/uL (150-450); RED BLOOD COUNT 4.75 10^6/uL (4.00-5.40); RED CELL DISTRIBUTION WIDTH 13.6 % (11.5-14.5); WHITE BLOOD COUNT 8.1 10^3/uL (4.0-10.0)
[2017-10-24 13:22] LABS: CONTROL LINE HCG INT CTR LINE PRESENT; HCG, SERUM QUALITATIVE NEGATIVE (NEGATIVE)
[2017-10-24 13:29] LABS: ALBUMIN 3.5 GM/DL (3.2-5.2); ALKALINE PHOSPHATASE 89 U/L (45-117); ALT/SGPT 34 U/L (12-78); AMYLASE 30 U/L (25-115); ANION GAP 7 MEQ/L (8-16); AST/SGOT 28 U/L (7-37); BILIRUBIN,DIRECT < 0.1 MG/DL (0.0-0.2); BILIRUBIN,TOTAL 0.4 MG/DL (0.2-1.0); BLOOD UREA NITROGEN 9 MG/DL (7-18); CALCIUM LEVEL 8.3 MG/DL (8.5-10.1); CARBON DIOXIDE LEVEL 27 MEQ/L (21-32); CHLORIDE LEVEL 107 MEQ/L (98-107); CREATININE FOR GFR 0.64 MG/DL (0.55-1.30); GLOMERULAR FILTRATION RATE > 60.0 (>60); GLUCOSE, FASTING 103 MG/DL (70-100); LIPASE 63 U/L (73-393); POTASSIUM SERUM 3.5 MEQ/L (3.5-5.1); SODIUM LEVEL 141 MEQ/L (136-145); TOTAL PROTEIN 7.4 GM/DL (6.4-8.2)
[2017-10-24 14:09] LABS: KETONE, URINE AUTO RFX NEGATIVE (NEGATIVE); MUCUS, URINE RFX SMALL (NEGATIVE); RBC, URINE AUTO RFX 3 /HPF (0-3); SPECIFIC GRAVITY UR AUTO RFX 1.016 (1.002-1.035); SQUAM EPITHELIAL CELL UR AURFX 3 /HPF (0-6); WBC, URINE AUTO RFX 6 /HPF (0-3)
[2017-10-24 14:10] LABS: LEUKOCYTE ESTERASE UR AUTO RFX 1+ (NEGATIVE); NITRITE, URINE AUTO RFX POSITIVE (NEGATIVE)
== END 2017-10-24 15:06 | disposition home or self-care (01) ==
LOC: M ED 12:01
DX: K52.9 Noninfective gastroenteritis and colitis, unspecified (principal); N39.0 Urinary tract infection, site not specified; R11.2 Nausea with vomiting, unspecified; R19.7 Diarrhea, unspecified; J45.909 Unspecified asthma, uncomplicated; Z79.899 Other long term (current) drug therapy; Z88.0 Allergy status to penicillin
CPT/HCPCS: J1885

== ENCOUNTER 2018-02-21 15:59 | Emergency (ER) | payer MEDICARE, MEDICAID ==
[2018-02-21] MEDS: NS 1,000 ML IV (16:32)
[2018-02-21] MEDS: KETOROLAC 30 MG/ML VIAL (J1885) IV (16:32)
[2018-02-21] MEDS: diphenhydrAMINE INJ 50MG/ML VIAL (J1200) IV (16:32)
[2018-02-21] MEDS: METOCLOPRAMIDE INJ 10MG/2ML VIAL (J2765) IV (16:32)
[2018-02-21 17:41] LABS: ANION GAP 7 MEQ/L (8-16); BLOOD UREA NITROGEN 8 MG/DL (7-18); CARBON DIOXIDE LEVEL 28 MEQ/L (21-32); CHLORIDE LEVEL 111 MEQ/L (98-107); CREATININE FOR GFR 0.62 MG/DL (0.55-1.30); GLOMERULAR FILTRATION RATE > 60.0 (>60); GLUCOSE, FASTING 112 MG/DL (70-100); POTASSIUM SERUM 3.7 MEQ/L (3.5-5.1); SODIUM LEVEL 146 MEQ/L (136-145)
== END 2018-02-21 18:10 | disposition home or self-care (01) ==
LOC: M ED 15:59
DX: K52.9 Noninfective gastroenteritis and colitis, unspecified (principal); J45.909 Unspecified asthma, uncomplicated; F43.10 Post-traumatic stress disorder, unspecified; F31.9 Bipolar disorder, unspecified; R51 Headache; Z88.0 Allergy status to penicillin; Z79.899 Other long term (current) drug therapy
CPT/HCPCS: J1200

== ENCOUNTER 2018-07-04 17:16 | Emergency (ER) | payer MEDICARE, MEDICAID ==
[~2018-07-04] VITALS: Ht 162.6 cm; Wt 68.2 kg
[~2018-07-04 17:16] MED LIST changes: +AMBI5TAB PO; +BENA25CA4 PO; +CYCL10TA PO; +CYCL5TAB PO; +IBUP-1022 PO; +LITH300T2 PO; +MACR100C43 PO; +NAPR-50 PO; +SERT-155 PO; +ZOFR4TAB14 PO; +ZOLO50TA PO; +melatonin PO
[2018-07-04 17:17] VITALS: BP 132/85
[2018-07-04] MEDS ORDERED: TRAZ1TAB14 PO (17:27)
[2018-07-04] MEDS ORDERED: traMADol 50 MG TAB PO ONE (18:00)
--- NOTE | 2018-07-04 18:40 | REPVR ---
EXAM: CT Head Without Contrast EXAM DATE/TIME: 07/04/2018 6:02 PM CLINICAL HISTORY: 33 years old, female; Pain; Additional info: Fall x 2days, blood l ear TECHNIQUE: Axial computed tomography images of the head/brain without contrast. All CT scans at this facility use at least one of these dose optimization techniques: automated exposure control; mA and/or kV adjustment per patient size (includes targeted exams where dose is matched to clinical indication); or iterative reconstruction. COMPARISON: CT Head without contrast 06/20/2017 10:05 AM FINDINGS: Brain: There is no evidence of intracranial bleed. There is no evidence of mass effect. Ventricles: Normal appearing ventricles. Bones/joints: Normal. No acute fracture. Sinuses: Clear paranasal sinuses. Mastoid air cells: Clear mastoid air cells. Soft tissues: Normal. IMPRESSION: No evidence of intracranial bleed. Clear middle ear canals Electronically signed by: Alfredo Taylor On 07/04/2018 18:40:28 PM
[2018-07-04] MEDS ORDERED: CIPRODEX OTIC (18:58)
[2018-07-04] MEDS ORDERED: CIPRODEX OTIC SUSP 7.5ML AS STA (18:59)
== END 2018-07-04 19:17 | disposition home or self-care (01) ==
LOC: M ED 17:16
DX: H60.92 Unspecified otitis externa, left ear (principal); S09.90XA Unspecified injury of head, initial encounter; W01.0XXA Fall on same level from slipping, tripping and stumbling without subsequent striking against object, initial encounter; Y92.89 Other specified places as the place of occurrence of the external cause; J45.909 Unspecified asthma, uncomplicated; Z88.0 Allergy status to penicillin

== ENCOUNTER 2018-09-16 11:11 | Emergency (ER) | payer MEDICARE, MEDICAID ==
[~2018-09-16] VITALS: Ht 162.6 cm; Wt 93.6 kg
[~2018-09-16 11:11] MED LIST changes: +CIPRODEX OTIC; -NAPR-50 PO; +NAPR-837 PO
[2018-09-16 11:12] VITALS: BP 128/80
[2018-09-16] MEDS ORDERED: NS 1,000 ML IV ONE (12:15)
[2018-09-16 12:42] LABS: BASO % 0.4 % (0.0-1.0); EOS # 0.1 10^3/uL (0.0-0.50); EOS % 1.7 % (0.0-3.0); HEMATOCRIT 39.9 % (36.0-47.0); HEMOGLOBIN 12.6 g/dl (12.0-15.5); LYMPH # 1.4 10^3/uL (1.5-4.5); LYMPH % 20.5 % (24.0-44.0); MEAN CORPUSCULAR HEMOGLOBIN 24.7 pg (27.0-33.0); MEAN CORPUSCULAR HGB CONC 31.6 g/dl (32.0-36.5); MEAN CORPUSCULAR VOLUME 78.1 fl (80.0-96.0); MONO # 0.6 10^3/uL (0.0-0.8); MONO % 8.3 % (0.0-5.0); NEUTROPHILS # 4.8 10^3/uL (1.8-7.7); NEUTROPHILS % 68.7 % (36.0-66.0); PLATELET COUNT, AUTOMATED 221 10^3/uL (150-450); RED BLOOD COUNT 5.11 10^6/uL (4.00-5.40)
[2018-09-16 12:50] LABS: INFLUENZA A AMPLIFICATION NEGATIVE (NEGATIVE); INFLUENZA B AMPLIFICATION NEGATIVE (NEGATIVE)
[2018-09-16 13:01] LABS: BLOOD UREA NITROGEN 11 MG/DL (7-18); CALCIUM LEVEL 8.6 MG/DL (8.5-10.1); CARBON DIOXIDE LEVEL 28 MEQ/L (21-32); CHLORIDE LEVEL 106 MEQ/L (98-107); CREATININE FOR GFR 0.75 MG/DL (0.55-1.30); GLOMERULAR FILTRATION RATE > 60.0 (>60); GLUCOSE, FASTING 95 MG/DL (70-100); POTASSIUM SERUM 3.8 MEQ/L (3.5-5.1); SODIUM LEVEL 140 MEQ/L (136-145)
[2018-09-16] MEDS ORDERED: ACETAMINOPHEN TAB 650MG DOSE (2X325MG) PO ONE (14:00)
[2018-09-16] MEDS ORDERED: ONDANSETRON 4 MG ORAL DISINTEGRATING TAB (Q0162 PER 1MG) PO ONE (14:00)
[2018-09-16] MEDS ORDERED: ONDA4TAB6 PO (14:08)
== END 2018-09-16 14:55 | disposition home or self-care (01) ==
LOC: M ED 11:11
DX: J06.9 Acute upper respiratory infection, unspecified (principal); B34.9 Viral infection, unspecified; R53.81 Other malaise; J45.909 Unspecified asthma, uncomplicated; J44.9 Chronic obstructive pulmonary disease, unspecified; F31.9 Bipolar disorder, unspecified; F41.9 Anxiety disorder, unspecified; Z82.49 Family history of ischemic heart disease and other diseases of the circulatory system; Z88.0 Allergy status to penicillin
CPT/HCPCS: 36415; 80048; 81001; 81025; 85025; 87088; 87186; 87502; 96360; 96361; 99284; Q0162

== ENCOUNTER 2018-11-07 12:54 | Emergency (ER) | payer MEDICARE, MEDICAID ==
[~2018-11-07] VITALS: Ht 162.6 cm; Wt 93.8 kg
[2018-11-07 13:50] LABS: BASO # 0.1 10^3/uL (0.0-0.2); BASO % 0.6 % (0.0-1.0); EOS # 0.3 10^3/uL (0.0-0.50); EOS % 2.6 % (0.0-3.0); HEMOGLOBIN 12.4 g/dl (12.0-15.5); LYMPH # 2.3 10^3/uL (1.5-4.5); LYMPH % 22.9 % (24.0-44.0); MEAN CORPUSCULAR HEMOGLOBIN 25.3 pg (27.0-33.0); MEAN CORPUSCULAR HGB CONC 32.6 g/dl (32.0-36.5); MEAN CORPUSCULAR VOLUME 77.6 fl (80.0-96.0); MONO # 0.6 10^3/uL (0.0-0.8); MONO % 6.1 % (0.0-5.0); NEUTROPHILS # 6.9 10^3/uL (1.8-7.7); NEUTROPHILS % 67.3 % (36.0-66.0); PLATELET COUNT, AUTOMATED 256 10^3/uL (150-450); WHITE BLOOD COUNT 10.2 10^3/uL (4.0-10.0)
[2018-11-07] MEDS ORDERED: IBUPROFEN 600 MG TAB PO ONE (15:30)
--- NOTE | 2018-11-07 16:26 | REP ---
Clinical: Trauma. Technique: Five views of the skull. Findings: The osseous structures and surrounding soft tissues appear essentially normal. No obvious acute fracture or dislocation is appreciated the sinuses are relatively well aerated and without fluid level. No foreign body identified. Impression: No obvious acute skull injury. Electronically Signed by Kristofer Mary MD 11/07/2018 04:19 P
--- NOTE | 2018-11-07 16:27 | REP ---
Clinical: Trauma. Technique: Seven views of the facial bones. Findings: The osseous structures are intact and there is no evidence for acute fracture or dislocation. Sinuses are clear and without fluid level to suggest occult injury. Bilateral orbits appear intact. Mandible appears intact. Impression: No obvious acute facial injury appreciated. Electronically Signed by Kristofer Mary MD 11/07/2018 04:20 P
[2018-11-07 16:38] VITALS: BP 121/82
== END 2018-11-07 16:40 | disposition home or self-care (01) ==
LOC: M ED 12:54
DX: H74.8X2 Other specified disorders of left middle ear and mastoid (principal); F41.9 Anxiety disorder, unspecified; F31.9 Bipolar disorder, unspecified; F43.10 Post-traumatic stress disorder, unspecified; N92.6 Irregular menstruation, unspecified; R51 Headache; F12.10 Cannabis abuse, uncomplicated; Z88.0 Allergy status to penicillin

== ENCOUNTER 2019-02-14 16:38 | Emergency (ER) | payer MEDICARE, MEDICAID ==
[~2019-02-14] VITALS: Ht 162.6 cm; Wt 79.0 kg
[~2019-02-14 16:38] MED LIST changes: +INDO-16 PO; -INDO25CA PO
[2019-02-14 17:45] VITALS: BP 120/80
[2019-02-14 17:53] LABS: BASO # 0.1 10^3/uL (0.0-0.2); BASO % 0.5 % (0.0-1.0); EOS # 0.8 10^3/uL (0.0-0.5); EOS % 7.2 % (0.0-3.0); HEMATOCRIT 28.9 % (36.0-47.0); HEMOGLOBIN 9.1 g/dl (12.0-15.5); LYMPH # 2.4 10^3/uL (1.5-5.0); LYMPH % 23.1 % (24.0-44.0); MEAN CORPUSCULAR HEMOGLOBIN 23.6 pg (27.0-33.0); MEAN CORPUSCULAR HGB CONC 31.5 g/dl (32.0-36.5); MEAN CORPUSCULAR VOLUME 75.1 fl (80.0-96.0); MONO # 0.7 10^3/uL (0.0-0.8); MONO % 6.5 % (0.0-5.0); NEUTROPHILS # 6.5 10^3/uL (1.5-8.5); PLATELET COUNT, AUTOMATED 286 10^3/uL (150-450); RED BLOOD COUNT 3.85 10^6/uL (4.00-5.40); WHITE BLOOD COUNT 10.4 10^3/uL (4.0-10.0)
[2019-02-14 18:05] LABS: INR 0.99; PROTHROMBIN TIME 12.8 SECONDS (11.8-14.0)
[2019-02-14 18:06] LABS: PARTIAL THROMBOPLASTIN TIME 27.2 SECONDS (25.0-38.4)
[2019-02-14 18:36] LABS: HCG, SERUM QUALITATIVE NEGATIVE (NEGATIVE)
[2019-02-14 18:42] LABS: ALBUMIN 3.3 GM/DL (3.2-5.2); ALT/SGPT 18 U/L (12-78); BILIRUBIN,DIRECT < 0.1 MG/DL (0.0-0.2); BILIRUBIN,TOTAL 0.2 MG/DL (0.2-1.0); BLOOD UREA NITROGEN 11 MG/DL (7-18); CALCIUM LEVEL 8.3 MG/DL (8.5-10.1); CARBON DIOXIDE LEVEL 27 MEQ/L (21-32); CHLORIDE LEVEL 108 MEQ/L (98-107); CK-MB VALUE MASS < 1.0 NG/ML (<3.6); CPK CREATINE PHOSPHOKINASE 102 U/L (26-192); FREE T4 1.04 NG/DL (0.76-1.46); GLOMERULAR FILTRATION RATE > 60.0 (>60); GLUCOSE, FASTING 100 MG/DL (70-100); LIPASE 59 U/L (73-393); MB/CK RELATIVE INDEX 0.98 (< OR =4); SODIUM LEVEL 141 MEQ/L (136-145); TROPONIN I < 0.02 NG/ML (< 0.10)
[2019-02-14] MEDS ORDERED: ISOVUE-370 76% 100ML VIAL (Q9967) As Ordered ONE (19:14)
--- NOTE | 2019-02-14 19:14 | REP ---
Clinical: Acute chest pain. Technique: Single portable semiupright view of the chest. Comparison: 10/24/2017. Findings: Examination is limited by portable technique, underpenetration and poor inspiratory effort. No focal consolidation, effusion, or pneumothorax appreciated. Cardiac silhouette is within normal limits / stable for technique and compared to prior examination. Skeletal structures are intact. Impression: Limited examination. No obvious acute cardiopulmonary process. Electronically Signed by Kristofer Mary MD 02/14/2019 07:06 P
--- NOTE | 2019-02-14 20:12 | REPVR ---
EXAM: CT Head Without Contrast EXAM DATE/TIME: 02/14/2019 7:18 PM CLINICAL HISTORY: 33 years old, female; Syncope and collapse; Additional info: R/O pe - syncope = May wait to do at time of cta TECHNIQUE: Imaging protocol: Computed tomography of the head without contrast. Radiation optimization: All CT scans at this facility use at least one of these dose optimization techniques: automated exposure control; mA and/or kV adjustment per patient size (includes targeted exams where dose is matched to clinical indication); or iterative reconstruction. COMPARISON: CT Head without contrast 07/04/2018 5:55 PM FINDINGS: Brain: No CT evidence of acute intracranial hemorrhage or acute territorial infarction. No significant mass effect or midline shift. Basal cisterns patent. Ventricles: Normal in size and configuration. Bones/joints: No acute osseous abnormality. Sinuses: Mild ethmoid mucosal thickening. Mastoid air cells: Grossly unremarkable. Soft tissues: Grossly unremarkable. IMPRESSION: 1. No CT evidence of acute intracranial pathology. 2. Additional findings, as above. Electronically signed by: Paulino Kraft On 02/14/2019 20:11:50 PM
--- NOTE | 2019-02-14 20:14 | REPVR ---
EXAM: CT Cervical Spine Without Contrast EXAM DATE/TIME: 02/14/2019 7:18 PM CLINICAL HISTORY: 33 years old, female; Injury or trauma; Fall; Initial encounter; Blunt trauma TECHNIQUE: Imaging protocol: Computed tomography images of the cervical spine without contrast. Coronal and sagittal reformatted images were created and reviewed. Radiation optimization: All CT scans at this facility use at least one of these dose optimization techniques: automated exposure control; mA and/or kV adjustment per patient size (includes targeted exams where dose is matched to clinical indication); or iterative reconstruction. COMPARISON: No relevant prior studies available. FINDINGS: Vertebrae: Straightening of the normal cervical lordosis. Alignment anatomic. No CT evidence of acute fracture, dislocation or subluxation. Vertebral body heights maintained. Discs/Spinal canal/Neural foramina: Intervertebral disc spaces preserved. No significant spinal canal or neural foraminal stenosis. Soft tissues: Grossly unremarkable. Lungs: Grossly unremarkable. IMPRESSION: 1. No CT evidence of acute cervical spine traumatic injury. 2. Additional findings, as above. Electronically signed by: Paulino Kraft On 02/14/2019 20:13:50 PM
--- NOTE | 2019-02-14 20:19 | REPVR ---
EXAM: CT Angiography Chest With Contrast EXAM DATE/TIME: 02/14/2019 7:18 PM CLINICAL HISTORY: 33 years old, female; Chest pain; Additional info: R/O pe TECHNIQUE: Imaging protocol: Computed tomographic angiography of the chest with intravenous contrast. Coronal and sagittal reformatted images were created and reviewed. 3D rendering: MIP reconstructed images were created and reviewed. Radiation optimization: All CT scans at this facility use at least one of these dose optimization techniques: automated exposure control; mA and/or kV adjustment per patient size (includes targeted exams where dose is matched to clinical indication); or iterative reconstruction. Contrast material: ISOVUE 370; Contrast volume: 75 ml; Contrast route: IV; COMPARISON: CR PORTABLE CHEST X-RAY 02/14/2019 6:50 PM FINDINGS: Pulmonary arteries: Contrast opacification satisfactory. No intraluminal filling defect. Aorta: Unremarkable. No aneurysm or dissection. Lungs: Mild linear stranding and groundglass, likely due to atelectasis and/or scarring. No focal consolidation. Mild pulmonary vascular congestion. Pleural space: Unremarkable. No pneumothorax. No pleural effusion. Heart: Mild cardiomegaly. No pericardial effusion. Liver: Mild hepatomegaly. Gallbladder and bile ducts: Status post cholecystectomy. No biliary ductal dilatation. Spleen: Mild splenomegaly. Lymph nodes: No pathologically enlarged lymph nodes. Bones/joints: No acute osseous abnormality. Mild degenerative changes. Soft tissues: Unremarkable. IMPRESSION: 1. No CT evidence of pulmonary embolism. 2. Mild cardiomegaly and pulmonary vascular congestion. 3. Additional findings, as above. Electronically signed by: Paulino Kraft On 02/14/2019 20:18:46 PM
--- NOTE | 2019-02-16 16:41 | ECGEPIP ---
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
== END 2019-02-14 21:00 | disposition home or self-care (01) ==
LOC: M ED 16:38
DX: R55 Syncope and collapse (principal); B88.1 Tungiasis [sandflea infestation]; F33.9 Major depressive disorder, recurrent, unspecified; F41.9 Anxiety disorder, unspecified; F43.10 Post-traumatic stress disorder, unspecified
CPT/HCPCS: 36415; 70450; 71045; 71275; 72125; 80048; 80076; 82550; 82553; 83690; 84439; 84443; 84484; 84703; 85025; 85610; 85730; 87040; 93005; 93041; 94760; 99285; Q9967

== ENCOUNTER 2019-06-26 15:48 | Emergency (ER) | payer MEDICARE, MEDICAID ==
[~2019-06-26] VITALS: Ht 162.6 cm; Wt 102.1 kg
[~2019-06-26 15:48] MED LIST changes: -SERT-155 PO; +SERT50TA29 PO
[2019-06-26 16:34] LABS: BASO % 0.4 % (0.0-1.0); EOS # 0.1 10^3/uL (0.0-0.5); EOS % 1.4 % (0.0-3.0); HEMATOCRIT 36.9 % (36.0-47.0); HEMOGLOBIN 10.7 g/dl (12.0-15.5); LYMPH # 2.1 10^3/uL (1.5-5.0); LYMPH % 26.3 % (24.0-44.0); MEAN CORPUSCULAR HEMOGLOBIN 20.6 pg (27.0-33.0); MEAN CORPUSCULAR VOLUME 71.1 fl (80.0-96.0); MONO # 0.4 10^3/uL (0.0-0.8); MONO % 5.5 % (0.0-5.0); NEUTROPHILS # 5.2 10^3/uL (1.5-8.5); NEUTROPHILS % 65.9 % (36.0-66.0); PLATELET COUNT, AUTOMATED 263 10^3/uL (150-450); RED BLOOD COUNT 5.19 10^6/uL (4.00-5.40); WHITE BLOOD COUNT 7.8 10^3/uL (4.0-10.0)
[2019-06-26 17:02] LABS: BLOOD UREA NITROGEN 9 MG/DL (7-18); CALCIUM LEVEL 8.6 MG/DL (8.5-10.1); CARBON DIOXIDE LEVEL 28 MEQ/L (21-32); CHLORIDE LEVEL 106 MEQ/L (98-107); CK-MB VALUE MASS 1.4 NG/ML (<3.6); CPK CREATINE PHOSPHOKINASE 174 U/L (26-192); CREATININE FOR GFR 0.72 MG/DL (0.55-1.30); GLOMERULAR FILTRATION RATE > 60.0 (>60); GLUCOSE, FASTING 108 MG/DL (70-100); POTASSIUM SERUM 3.8 MEQ/L (3.5-5.1); SODIUM LEVEL 140 MEQ/L (136-145); TROPONIN I < 0.02 NG/ML (< 0.10)
[2019-06-26] MEDS ORDERED: IBUP-1022 PO (17:12)
[2019-06-26 17:29] VITALS: BP 112/56
--- NOTE | 2019-06-26 20:46 | ECGEPIP ---
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
--- NOTE | 2019-06-27 07:23 | REP ---
CHEST, SINGLE VIEW: Single view of the chest is performed. There is mild cardiomegaly. There is no change since the prior exam of 02/14/2019 with no acute infiltrate or pulmonary edema. The mediastinal silhouette is unchanged. IMPRESSION: Mild cardiomegaly. No acute infiltrate. Electronically Signed by Parmjit Aviles MD 06/27/2019 05:56 P
== END 2019-06-26 17:44 | disposition home or self-care (01) ==
LOC: M ED 15:48 → EDBD 15:48 → M ED 17:44
DX: R07.89 Other chest pain (principal); J45.909 Unspecified asthma, uncomplicated; F31.9 Bipolar disorder, unspecified; E66.9 Obesity, unspecified; Z88.0 Allergy status to penicillin; F17.210 Nicotine dependence, cigarettes, uncomplicated

== ENCOUNTER → 2019-07-26 | Outpatient (CLI) | payer MEDICARE, MEDICAID | LOC: M LAB 11:17 | PROVIDERS: ATTEND Internal Medicine Cardiovascular Disease | DX: R06.02 Shortness of breath (principal) ==

== ENCOUNTER 2019-08-06 13:18 | Emergency (ER) | payer MEDICARE, MEDICAID ==
[~2019-08-06] VITALS: Ht 162.6 cm; Wt 101.6 kg
[2019-08-06] MEDS ORDERED: KETOROLAC TROMETHAMINE 10 MG TAB PO ONE (13:45)
[2019-08-06] MEDS ORDERED: CYCLOBENZAPRINE 5MG TABLET PO ONE (13:45)
--- NOTE | 2019-08-06 14:08 | REP ---
Right shoulder three views : There is no fracture or dislocation. Mineralization and joint spaces are normal. There are no calcifications or foreign bodies. Impression: Negative right shoulder . Electronically Signed by Parmjit Guerra MD 08/06/2019 01:59 P
--- NOTE | 2019-08-06 14:09 | REP ---
Right elbow for views : There is no fracture or dislocation. Mineralization and joint spaces are normal. There are no calcifications or foreign bodies. Impression: Negative right elbow . Electronically Signed by Parmjit Guerra MD 08/06/2019 02:00 P
[2019-08-06] MEDS ORDERED: CYCL5TAB PO (14:38)
[2019-08-06] MEDS ORDERED: KETO10TAB PO (14:38)
[2019-08-06 14:40] VITALS: BP 120/77
== END 2019-08-06 14:43 | disposition home or self-care (01) ==
LOC: M ED 13:18
DX: S43.401A Unspecified sprain of right shoulder joint, initial encounter (principal); S40.021A Contusion of right upper arm, initial encounter; W22.8XXA Striking against or struck by other objects, initial encounter; Y92.018 Other place in single-family (private) house as the place of occurrence of the external cause; J45.909 Unspecified asthma, uncomplicated; F33.9 Major depressive disorder, recurrent, unspecified; F41.9 Anxiety disorder, unspecified; F43.10 Post-traumatic stress disorder, unspecified; Z88.0 Allergy status to penicillin

== ENCOUNTER → 2019-08-11 | Outpatient (REF) | payer MEDICARE, MEDICAID ==
[~2019-08-11] MED LIST changes: +KETO10TAB PO
[2019-08-11 12:44] LABS: BASO % 0.5 % (0.0-1.0); EOS # 0.2 10^3/uL (0.0-0.5); EOS % 2.4 % (0.0-3.0); HEMATOCRIT 36.6 % (36.0-47.0); HEMOGLOBIN 11.2 g/dl (12.0-15.5); LYMPH # 2.4 10^3/uL (1.5-5.0); LYMPH % 30.7 % (24.0-44.0); MEAN CORPUSCULAR HEMOGLOBIN 21.8 pg (27.0-33.0); MEAN CORPUSCULAR HGB CONC 30.6 g/dl (32.0-36.5); MEAN CORPUSCULAR VOLUME 71.2 fl (80.0-96.0); MONO # 0.5 10^3/uL (0.0-0.8); NEUTROPHILS # 4.6 10^3/uL (1.5-8.5); PLATELET COUNT, AUTOMATED 282 10^3/uL (150-450); RED BLOOD COUNT 5.14 10^6/uL (4.00-5.40); WHITE BLOOD COUNT 7.7 10^3/uL (4.0-10.0)
[2019-08-11 13:06] LABS: ALBUMIN 3.6 GM/DL (3.2-5.2); ALT/SGPT 35 U/L (12-78); BILIRUBIN,TOTAL 0.5 MG/DL (0.2-1.0); BLOOD UREA NITROGEN 10 MG/DL (7-18); CARBON DIOXIDE LEVEL 28 MEQ/L (21-32); CHLORIDE LEVEL 106 MEQ/L (98-107); CHOLESTEROL LEVEL 143 MG/DL (<200); FREE T4 1.32 NG/DL (0.76-1.46); GLOMERULAR FILTRATION RATE > 60.0 (>60); GLUCOSE, FASTING 126 MG/DL (70-100); HDL CHOLESTEROL 20 MG/DL (>40); NON-HDL-C 123 MG/DL; POTASSIUM SERUM 3.7 MEQ/L (3.5-5.1); SODIUM LEVEL 139 MEQ/L (136-145); TOTAL 25(OH) VITAMIN D 11.5 NG/ML (30.0-100.0); TOTAL PROTEIN 7.2 GM/DL (6.4-8.2); TRIGLYCERIDES LEVEL 657 MG/DL (<150)
== END ==
LOC: M LAB REF 12:18
PROVIDERS: ATTEND Nurse Practitioner Family
DX: Z13.9 Encounter for screening, unspecified (principal); D64.9 Anemia, unspecified; R00.2 Palpitations; E55.9 Vitamin D deficiency, unspecified; J45.909 Unspecified asthma, uncomplicated; F41.9 Anxiety disorder, unspecified; F32.9 Major depressive disorder, single episode, unspecified; Z79.899 Other long term (current) drug therapy

== ENCOUNTER → 2019-09-30 | Outpatient (REF) | payer MEDICARE, MEDICAID ==
[~2019-09-30] MED LIST changes: +CYCL-707 PO; -CYCL10TA PO
[2019-09-30 12:44] LABS: BASO % 0.4 % (0.0-1.0); EOS # 0.2 10^3/uL (0.0-0.5); HEMATOCRIT 37.4 % (36.0-47.0); HEMOGLOBIN 11.6 g/dl (12.0-15.5); LYMPH # 2.7 10^3/uL (1.5-5.0); LYMPH % 28.7 % (24.0-44.0); MONO # 0.5 10^3/uL (0.0-0.8); MONO % 5.4 % (0.0-5.0); NEUTROPHILS % 63.2 % (36.0-66.0); PLATELET COUNT, AUTOMATED 319 10^3/uL (150-450); RED BLOOD COUNT 5.27 10^6/uL (4.00-5.40); WHITE BLOOD COUNT 9.6 10^3/uL (4.0-10.0)
[2019-09-30 13:08] LABS: CHOLESTEROL RISK RATIO 5.08 (<5); FOLATE 10.2 NG/ML; PERCENT SATURATION 10.7 % (13.2-45.0)
== END ==
LOC: M LAB REF 12:21
PROVIDERS: ATTEND Nurse Practitioner Family
DX: E78.1 Pure hyperglyceridemia (principal); Z13.9 Encounter for screening, unspecified; D64.9 Anemia, unspecified; N92.6 Irregular menstruation, unspecified

== ENCOUNTER 2019-12-28 13:49 | Emergency (ER) | payer MEDICARE, MEDICAID ==
[~2019-12-28] VITALS: Ht 162.6 cm; Wt 98.2 kg
[2019-12-28] MEDS ORDERED: NS 1,000 ML IV ONE (14:45)
[2019-12-28] MEDS ORDERED: ONDANSETRON 4MG/2ML VIAL IV ONE (14:45)
[2019-12-28 14:55] LABS: BASO # 0.1 10^3/uL (0.0-0.2); BASO % 0.4 % (0.0-1.0); EOS # 0.1 10^3/uL (0.0-0.5); EOS % 0.9 % (0.0-3.0); HEMATOCRIT 37.4 % (36.0-47.0); HEMOGLOBIN 11.7 g/dl (12.0-15.5); LYMPH # 2.6 10^3/uL (1.5-5.0); LYMPH % 21.4 % (24.0-44.0); MEAN CORPUSCULAR HEMOGLOBIN 22.9 pg (27.0-33.0); MEAN CORPUSCULAR HGB CONC 31.3 g/dl (32.0-36.5); MEAN CORPUSCULAR VOLUME 73.3 fl (80.0-96.0); MONO # 0.7 10^3/uL (0.0-0.8); MONO % 5.7 % (0.0-5.0); NEUTROPHILS # 8.7 10^3/uL (1.5-8.5); NEUTROPHILS % 70.9 % (36.0-66.0); PLATELET COUNT, AUTOMATED 273 10^3/uL (150-450); WHITE BLOOD COUNT 12.2 10^3/uL (4.0-10.0)
[2019-12-28] MEDS ORDERED: ISOVUE-370 76% 100ML VIAL As Ordered ONE (15:24)
[2019-12-28 15:27] LABS: ALBUMIN 3.6 GM/DL (3.2-5.2); ALT/SGPT 31 U/L (12-78); BILIRUBIN,DIRECT < 0.1 MG/DL (0.0-0.2); BILIRUBIN,TOTAL 0.4 MG/DL (0.2-1.0); ETHYL ALCOHOL (ETHANOL) < 0.003 % (0.000-0.010); LIPASE 52 U/L (73-393); TOTAL PROTEIN 7.3 GM/DL (6.4-8.2)
[2019-12-28 17:33] LABS: AMPHETAMINES LEVEL URINE NEGATIVE (NEGATIVE); BARBITURATES URINE NEGATIVE (NEGATIVE); BENZODIAZEPINES URINE NEGATIVE (NEGATIVE); CANNABINOIDS URINE NEGATIVE (NEGATIVE); COCAINE METABOLITE URINE NEGATIVE (NEGATIVE); METHADONE URINE NEGATIVE (NEGATIVE); OPIATES URINE NEGATIVE (NEGATIVE); PHENCYCLIDINE URINE NEGATIVE (NEGATIVE)
[2019-12-28] MEDS ORDERED: MACR100C43 PO (17:58)
[2019-12-28 18:10] VITALS: BP 110/78
--- NOTE | 2019-12-29 01:19 | REP ---
REASON FOR EXAM: Diffuse abdominal pain. COMPARISON: 01/22/2014, the latest prior. CONTRAST: 100 mL Isovue-370. The lung bases are clear and unchanged. There is no significant change in appearance of the liver, gallbladder, spleen, pancreas, adrenal glands, or kidneys. There is no significant change in appearance of the abdominal aorta or para-aortic regions. There is no significant change in appearance of bowel loops or their mesenteries. There is no free fluid or free air. Arising from the pelvis, there is either one large septated or two separate low-density masses. The one on the right extends into the lower abdomen/upper pelvic region and measures approximately 13.1 x 13.7 x 11 cm and is seen with slight mixed internal web-like enhancement, although overall there is near water density Hounsfield unit reading. On the left, the mass measures approximately 9.2 x 6.1 x 5.8 cm. There is no evidence of pelvic sidewall adenopathy. The left-sided low-density mass compresses the left anterior urinary bladder wall. The bowel loops and their mesenteries are within normal limits. Bone window technique throughout the examination shows the osseous structures to be within normal limits. IMPRESSION: Two large or one large septated pelvic mass/masses, as described above, likely of ovarian origin. Whether benign or malignant etiologies cannot be determined by this exam. Gynecological consultation is recommended. Electronically Signed by Brian Dawson DO 12/29/2019 08:09 A
--- NOTE | 2019-12-29 03:06 | REP ---
REASON: Followup cystic pelvic masses seen on CT obtained earlier today. Transvesical imaging only was obtained. This limits the exam. Uterus measures 7.7 x 5.1 x 3.9 cm. The uterus is unremarkable. The endometrial echo complex is unremarkable. There is no discernible normal appearing right ovarian tissue. In its stead, there is a 14.5 x 10.5 x 10.4 cm sized multi-septated mixed echo mass. There is no normal appearing left ovarian tissue. In its stead, there is a 10.5 x 5.3 x 6.2 cm sized multi-septated mass having a similar appearance but a smaller size compared to the right adnexal mass. Doppler on the masses shows blood flow with an RI on the right of 0.88 and on the left of 0.66. IMPRESSION: Bilateral cystic septated adnexal masses suspicious for ovarian neoplasm, serous versus mucinous cystadenoma or cystadenocarcinoma. Electronically Signed by Brian Dawson DO 12/29/2019 08:10 A
--- NOTE | 2019-12-29 09:40 | ED PDOC ---
Post-Departure Follow-Up dr santiago faxed formal read of ct abd/p and pelvic us for fu Sepideh Peres MD Dec 29, 2019 09:40
== END 2019-12-28 18:12 | disposition home or self-care (01) ==
LOC: EDBD 13:49 → M ED 13:49
DX: O23.41 Unspecified infection of urinary tract in pregnancy, first trimester (principal); O34.81 Maternal care for other abnormalities of pelvic organs, first trimester; N83.201 Unspecified ovarian cyst, right side; Z3A.01 Less than 8 weeks gestation of pregnancy; O24.111 Pre-existing type 2 diabetes mellitus, in pregnancy, first trimester; O99.281 Endocrine, nutritional and metabolic diseases complicating pregnancy, first trimester; E78.5 Hyperlipidemia, unspecified; Z88.0 Allergy status to penicillin
CPT/HCPCS: 74177; 76856; 80047; 80076; 80307; 81001; 83690; 84702; 85025; 87088; 87186; 93976; 96360; 96361; 99284; G0480; Q9967

== ENCOUNTER 2020-02-02 10:56 | Emergency (ER) | payer MEDICARE, MEDICAID ==
[~2020-02-02] VITALS: Ht 162.6 cm; Wt 103.5 kg
[2020-02-02] MEDS ORDERED: PROAAER10 (11:09)
[2020-02-02 12:49] LABS: BASO % 0.3 % (0.0-1.0); EOS # 0.1 10^3/uL (0.0-0.5); EOS % 0.9 % (0.0-3.0); HEMATOCRIT 37.2 % (36.0-47.0); HEMOGLOBIN 11.7 g/dl (12.0-15.5); LYMPH # 1.8 10^3/uL (1.5-5.0); LYMPH % 23.9 % (24.0-44.0); MEAN CORPUSCULAR HEMOGLOBIN 23.3 pg (27.0-33.0); MEAN CORPUSCULAR HGB CONC 31.5 g/dl (32.0-36.5); MEAN CORPUSCULAR VOLUME 74.1 fl (80.0-96.0); MONO # 0.4 10^3/uL (0.0-0.8); NEUTROPHILS # 5.2 10^3/uL (1.5-8.5); NEUTROPHILS % 69.4 % (36.0-66.0); PLATELET COUNT, AUTOMATED 243 10^3/uL (150-450); RED BLOOD COUNT 5.02 10^6/uL (4.00-5.40); WHITE BLOOD COUNT 7.6 10^3/uL (4.0-10.0)
[2020-02-02 13:11] LABS: ALBUMIN 3.5 GM/DL (3.2-5.2); ALT/SGPT 41 U/L (12-78); BILIRUBIN,DIRECT 0.1 MG/DL (0.0-0.2); BILIRUBIN,TOTAL 0.5 MG/DL (0.2-1.0); BLOOD UREA NITROGEN 14 MG/DL (7-18); CALCIUM LEVEL 8.5 MG/DL (8.5-10.1); CARBON DIOXIDE LEVEL 29 MEQ/L (21-32); CHLORIDE LEVEL 107 MEQ/L (98-107); CK-MB VALUE MASS 1.8 NG/ML (<3.6); CPK CREATINE PHOSPHOKINASE 473 U/L (26-192); CREATININE FOR GFR 0.66 MG/DL (0.55-1.30); GLOMERULAR FILTRATION RATE > 60.0 (>60); GLUCOSE, FASTING 93 MG/DL (70-100); LIPASE 61 U/L (73-393); MB/CK RELATIVE INDEX 0.38 (< OR =4); SODIUM LEVEL 141 MEQ/L (136-145); TOTAL PROTEIN 7.2 GM/DL (6.4-8.2); TROPONIN I < 0.02 NG/ML (< 0.10)
[2020-02-02] MEDS ORDERED: DOXY-350 PO (15:24)
[2020-02-02 15:35] VITALS: BP 130/88
--- NOTE | 2020-02-22 14:33 | ECGEPIP ---
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
== END 2020-02-02 15:46 | disposition home or self-care (01) ==
LOC: M ED 10:56
DX: S70.371A Other superficial bite of right thigh, initial encounter (principal); S20.211A Contusion of right front wall of thorax, initial encounter; W54.0XXA Bitten by dog, initial encounter; Y92.89 Other specified places as the place of occurrence of the external cause; J45.909 Unspecified asthma, uncomplicated; F31.9 Bipolar disorder, unspecified; F41.9 Anxiety disorder, unspecified; Z88.0 Allergy status to penicillin

== ENCOUNTER → 2021-04-04 | Outpatient (CLI) | payer MEDICARE, MEDICAID ==
[~2021-04-04] MED LIST changes: +CIPR7.5D5 OTIC; -CIPRODEX OTIC; +DOXY-350 PO
--- NOTE | 2021-04-04 12:06 | REP ---
INDICATION: LOWBACK PAIN. COMPARISON: None. TECHNIQUE: Five views FINDINGS: Five views of the lumbosacral spine show no acute fracture, dislocation or subluxation. The intervertebral disc spaces are symmetric and well maintained. There is no spondylolysis or spondylolisthesis. The pedicles are intact bilaterally and there is no destructive osseous lesion. There is mild left-sided L3 4 marginal osteophytosis. Anterior lipping is seen involving L4 and L5. There is an incidental limbus vertebral body seen involving L4 and L5. IMPRESSION: Chronic changes and early degenerative changes as described above. <Electronically signed by Brian Dawson > 04/04/21 [id number]
--- NOTE | 2021-04-04 12:08 | REP ---
INDICATION: LOWBACK PAIN. COMPARISON: None TECHNIQUE: AP and lateral views FINDINGS: Vertebral body height and alignment is within normal limits. The disc spaces are symmetric and well maintained throughout. There is evidence of marginal osteophytosis bilaterally at the T7-8 level. The pedicles are intact bilaterally. IMPRESSION: Chronic changes as described above. <Electronically signed by Brian Dawson > 04/04/21 [id number]
== END ==
LOC: M RAD 09:24
PROVIDERS: ATTEND Physician Assistant
DX: M54.6 Pain in thoracic spine (principal)

== ENCOUNTER → 2021-05-15 | Outpatient (CLI) | payer MEDICARE, MEDICAID | LOC: M WUC 11:26 | PROVIDERS: ATTEND Physician Assistant | DX: E03.9 Hypothyroidism, unspecified (principal) ==

== ENCOUNTER → 2022-07-08 | Outpatient (CLI) | payer MEDICARE, MEDICAID ==
[~2022-07-08] MED LIST changes: -DOXY-350 PO; +DOXY-444 PO; +METHACHOLINE KIT INH ONE
== END ==
LOC: M CARPUL 13:49
PROVIDERS: ATTEND Nurse Practitioner Family
DX: R06.02 Shortness of breath (principal)

== ENCOUNTER 2022-09-03 21:21 | Emergency (ER) | payer MEDICARE, MEDICAID ==
[~2022-09-03] VITALS: Ht 162.6 cm; Wt 96.8 kg
[~2022-09-03 21:21] MED LIST changes: -METHACHOLINE KIT INH ONE
[2022-09-03] MEDS ORDERED: SYNT25TA PO (21:29)
[2022-09-04 00:44] VITALS: BP 140/97
== END 2022-09-04 01:44 | disposition left against medical advice (07) ==
LOC: M ED 21:21
DX: R10.9 Unspecified abdominal pain (principal); Z88.0 Allergy status to penicillin; Z79.51 Long term (current) use of inhaled steroids; Z79.899 Other long term (current) drug therapy; Z53.21 Procedure and treatment not carried out due to patient leaving prior to being seen by health care provider

== ENCOUNTER 2022-09-07 14:03 | Emergency (ER) | payer MEDICARE, MEDICAID ==
[~2022-09-07] VITALS: Ht 162.6 cm; Wt 96.5 kg
[~2022-09-07 14:03] MED LIST changes: +SYNT25TA PO
[2022-09-07] MEDS ORDERED: LIDOCAINE 5% (LIDODERM) PATCH TD ONE (14:55)
[2022-09-07] MEDS ORDERED: methocarbamoL 750 MG TAB PO ONE (14:55)
[2022-09-07] MEDS ORDERED: KETOROLAC 60MG 2ML VIAL IM ONE (14:55)
[2022-09-07] MEDS ORDERED: CIPROFLOXACIN 500MG TABLET PO ONE (15:55)
[2022-09-07] MEDS ORDERED: CIPR-249 PO (15:56)
[2022-09-07] MEDS ORDERED: NAPR-837 PO (15:56)
[2022-09-07] MEDS ORDERED: METH-1165 PO (15:56)
[2022-09-07] MEDS ORDERED: ASPE4PAD TOP (15:56)
[2022-09-07 16:03] VITALS: BP 139/86
== END 2022-09-07 16:08 | disposition home or self-care (01) ==
LOC: M ED 14:03
DX: S30.0XXA Contusion of lower back and pelvis, initial encounter (principal); W10.8XXA Fall (on) (from) other stairs and steps, initial encounter; Y92.009 Unspecified place in unspecified non-institutional (private) residence as the place of occurrence of the external cause; Y93.29 Activity, other involving ice and snow; Y99.8 Other external cause status; N10 Acute pyelonephritis; J44.9 Chronic obstructive pulmonary disease, unspecified; R51.9 Headache, unspecified; Z88.0 Allergy status to penicillin; Z79.51 Long term (current) use of inhaled steroids; Z79.899 Other long term (current) drug therapy
CPT/HCPCS: 72072; 72110; 81001; 87088; 87186; 96372; 99283; J1885

== ENCOUNTER 2023-12-06 21:40 | Emergency (ER) | payer MEDICARE, MEDICAID ==
[~2023-12-06] VITALS: Ht 162.6 cm; Wt 88.5 kg
[~2023-12-06 21:40] MED LIST changes: +ASPE4PAD TOP; +CIPR-249 PO; +DOXY-440 PO; -DOXY-444 PO; +METH-1165 PO; +ONDA-282 PO; -ONDA4TAB6 PO
[2023-12-06 22:43] LABS: BASO # 0.1 10^3/uL (0.0-0.2); BASO % 0.4 % (0.0-1.0); EOS # 0.1 10^3/uL (0.0-0.5); EOS % 0.8 % (0.0-3.0); HEMATOCRIT 42.6 % (36.0-47.0); HEMOGLOBIN 14.1 g/dl (12.0-15.5); LYMPH # 2.5 10^3/uL (1.5-5.0); LYMPH % 21.5 % (24.0-44.0); MEAN CORPUSCULAR HEMOGLOBIN 26.9 pg (27.0-33.0); MEAN CORPUSCULAR HGB CONC 33.1 g/dl (32.0-36.5); MEAN CORPUSCULAR VOLUME 81.3 fl (80.0-96.0); MONO # 0.6 10^3/uL (0.0-0.8); MONO % 4.8 % (2.0-8.0); NEUTROPHILS # 8.4 10^3/uL (1.5-8.5); PLATELET COUNT, AUTOMATED 280 10^3/uL (150-450); RED BLOOD COUNT 5.24 10^6/uL (4.00-5.40); WHITE BLOOD COUNT 11.6 10^3/uL (4.0-10.0)
[2023-12-06] MEDS: KETOROLAC 30 MG/ML 1ML VIAL IV ONE (22:43)
[2023-12-06] MEDS: NS 1,000 ML IV ONE (22:43)
[2023-12-06] MEDS: METOCLOPRAMIDE INJ 10MG/2ML VIAL IV ONE (22:43)
[2023-12-06 23:48] LABS: ALBUMIN 3.8 G/DL (3.2-5.2); ALKALINE PHOSPHATASE 100 U/L (46-116); ALT/SGPT 18 U/L (7.0-40); AST/SGOT 11 U/L (<34); BILIRUBIN,DIRECT < 0.1 MG/DL (<0.4); BILIRUBIN,TOTAL 0.3 MG/DL (0.3-1.2); LIPASE 26 U/L (12-53); TOTAL PROTEIN 7.3 G/DL (5.7-8.2)
[2023-12-07 01:20] VITALS: BP 131/70; TEMP 98.1; O2SAT 99
== END 2023-12-07 01:21 | disposition home or self-care (01) ==
LOC: M ED 21:40
DX: G43.909 Migraine, unspecified, not intractable, without status migrainosus (principal); R10.11 Right upper quadrant pain; R10.31 Right lower quadrant pain; E11.9 Type 2 diabetes mellitus without complications; F43.10 Post-traumatic stress disorder, unspecified; F32.A Depression, unspecified; F10.10 Alcohol abuse, uncomplicated; Z79.899 Other long term (current) drug therapy; Z88.2 Allergy status to sulfonamides
CPT/HCPCS: 80047; 80076; 81001; 83690; 84702; 85025; 87088; 87186; 96361; 96374; 96375; 99284; J1885; J2765

== ENCOUNTER 2024-01-14 00:15 | Emergency (ER) | payer MEDICARE, MEDICAID ==
[2024-01-14 00:35] VITALS: TEMP 98.2
[2024-01-14 00:49] VITALS: O2SAT 100
[2024-01-14 01:05] LABS: BASO % 0.4 % (0.0-1.0); EOS # 0.1 10^3/uL (0.0-0.5); HEMATOCRIT 39.8 % (36.0-47.0); HEMOGLOBIN 13.3 g/dl (12.0-15.5); LYMPH # 2.6 10^3/uL (1.5-5.0); LYMPH % 24.8 % (24.0-44.0); MEAN CORPUSCULAR HEMOGLOBIN 26.6 pg (27.0-33.0); MEAN CORPUSCULAR HGB CONC 33.4 g/dl (32.0-36.5); MEAN CORPUSCULAR VOLUME 79.6 fl (80.0-96.0); MONO # 0.6 10^3/uL (0.0-0.8); MONO % 5.4 % (2.0-8.0); NEUTROPHILS # 7.2 10^3/uL (1.5-8.5); NEUTROPHILS % 68.1 % (36.0-66.0); PLATELET COUNT, AUTOMATED 265 10^3/uL (150-450); WHITE BLOOD COUNT 10.6 10^3/uL (4.0-10.0)
[2024-01-14 01:26] LABS: BLOOD UREA NITROGEN 15 MG/DL (9-23); CALCIUM LEVEL 8.9 MG/DL (8.5-10.1); CARBON DIOXIDE LEVEL 27 MMOL/L (20-31); CHLORIDE LEVEL 106 MMOL/L (98-107); CK-MB VALUE MASS < 1.0 NG/ML (<3.6); CREATININE FOR GFR 0.78 MG/DL (0.55-1.30); GLOMERULAR FILTRATION RATE > 60.0 (>58); GLUCOSE, FASTING 104 MG/DL (60-100); POTASSIUM SERUM 3.2 MMOL/L (3.5-5.1); SODIUM LEVEL 142 MMOL/L (136-145)
[2024-01-14 01:28] LABS: CPK CREATINE PHOSPHOKINASE 106 U/L (34-145); MB/CK RELATIVE INDEX 0.94 (< OR =4)
[2024-01-14 01:42] LABS: ETHYL ALCOHOL (ETHANOL) 0.004 % (0.000-0.010); HCG, SERUM QUALITATIVE NEGATIVE (NEGATIVE)
[2024-01-14] MEDS: NS 1,000 ML IV ONE (01:45)
[2024-01-14 01:46] LABS: FREE T4 1.34 NG/DL (0.89-1.76); THYROID STIMULATING HORMONE 3.659 uIU/ML (0.55-4.78)
[2024-01-14 02:20] VITALS: BP 122/80
[2024-01-14] MEDS: POTASSIUM CHLORIDE 10MEQ SR TABLET PO ONE (04:20)
[2024-01-14 05:54] LABS: BARBITURATES URINE NEGATIVE (NEGATIVE); BENZODIAZEPINES URINE NEGATIVE (NEGATIVE); CANNABINOIDS URINE NEGATIVE (NEGATIVE); COCAINE METABOLITE URINE NEGATIVE (NEGATIVE); METHADONE URINE NEGATIVE (NEGATIVE); OPIATES URINE NEGATIVE (NEGATIVE); PHENCYCLIDINE URINE NEGATIVE (NEGATIVE)
[2024-01-14 05:58] LABS: AMPHETAMINES LEVEL URINE POSITIVE (NEGATIVE)
== END 2024-01-14 06:14 | disposition home or self-care (01) ==
LOC: EDBD 00:15 → M ED 00:15
DX: R55 Syncope and collapse (principal); R07.89 Other chest pain; J45.909 Unspecified asthma, uncomplicated; J44.9 Chronic obstructive pulmonary disease, unspecified; E03.9 Hypothyroidism, unspecified; F10.10 Alcohol abuse, uncomplicated; F19.10 Other psychoactive substance abuse, uncomplicated; F41.9 Anxiety disorder, unspecified; F32.A Depression, unspecified; F25.9 Schizoaffective disorder, unspecified; Z79.899 Other long term (current) drug therapy; Z88.0 Allergy status to penicillin

== ENCOUNTER 2024-02-29 14:23 | Emergency (ER) | payer MEDICARE, MEDICAID ==
[~2024-02-29] VITALS: Ht 162.6 cm; Wt 85.4 kg
[2024-02-29 18:24] LABS: BASO % 0.4 % (0.0-1.0); EOS # 0.1 10^3/uL (0.0-0.5); EOS % 0.9 % (0.0-3.0); HEMATOCRIT 39.9 % (36.0-47.0); LYMPH # 2.3 10^3/uL (1.5-5.0); LYMPH % 22.1 % (24.0-44.0); MEAN CORPUSCULAR HEMOGLOBIN 26.9 pg (27.0-33.0); MEAN CORPUSCULAR HGB CONC 32.6 g/dl (32.0-36.5); MEAN CORPUSCULAR VOLUME 82.6 fl (80.0-96.0); MONO # 0.5 10^3/uL (0.0-0.8); MONO % 4.5 % (2.0-8.0); NEUTROPHILS # 7.3 10^3/uL (1.5-8.5); NEUTROPHILS % 71.8 % (36.0-66.0); PLATELET COUNT, AUTOMATED 264 10^3/uL (150-450); RED BLOOD COUNT 4.83 10^6/uL (4.00-5.40); WHITE BLOOD COUNT 10.2 10^3/uL (4.0-10.0)
[2024-02-29 18:51] LABS: LIPASE 22 U/L (12-53)
[2024-02-29 18:54] LABS: ALKALINE PHOSPHATASE 89 U/L (46-116); ALT/SGPT 18 U/L (7.0-40); AST/SGOT 12 U/L (<34); BILIRUBIN,DIRECT 0.1 MG/DL (<0.4); BILIRUBIN,TOTAL 0.4 MG/DL (0.3-1.2); BLOOD UREA NITROGEN 15 MG/DL (9-23); CALCIUM LEVEL 9.1 MG/DL (8.5-10.1); CARBON DIOXIDE LEVEL 30 MMOL/L (20-31); CHLORIDE LEVEL 105 MMOL/L (98-107); CREATININE FOR GFR 0.69 MG/DL (0.55-1.30); GLOMERULAR FILTRATION RATE > 60.0 (>58); GLUCOSE, FASTING 93 MG/DL (60-100); POTASSIUM SERUM 3.4 MMOL/L (3.5-5.1); SODIUM LEVEL 140 MMOL/L (136-145); TOTAL PROTEIN 7.5 G/DL (5.7-8.2)
[2024-02-29] MEDS: NS 1,000 ML IV ONE (19:07)
[2024-02-29] MEDS: KETOROLAC 30 MG/ML 1ML VIAL IV ONE (19:07)
[2024-02-29] MEDS: diphenhydrAMINE 50MG/ML VIAL IV STA (19:07)
[2024-02-29] MEDS: METOCLOPRAMIDE INJ 10MG/2ML VIAL IV ONE (19:07)
[2024-02-29 20:15] VITALS: BP 129/76; TEMP 97.9; O2SAT 99
== END 2024-02-29 20:17 | disposition home or self-care (01) ==
LOC: M ED 14:23
DX: R51.9 Headache, unspecified (principal); J45.909 Unspecified asthma, uncomplicated; J44.9 Chronic obstructive pulmonary disease, unspecified; F43.10 Post-traumatic stress disorder, unspecified; F31.9 Bipolar disorder, unspecified; Z88.0 Allergy status to penicillin
CPT/HCPCS: 70450; 80048; 80076; 83690; 85025; 96361; 96374; 99284; J1200; J1885; J2765

== ENCOUNTER → 2024-07-01 | Outpatient (REF) | payer MEDICARE, MEDICAID ==
[~2024-07-01] MED LIST changes: -CYCL5TAB PO; +CYCL5TAB4 PO
== END ==
LOC: M LAB REF 12:23
PROVIDERS: ATTEND Physician Assistant
DX: B34.9 Viral infection, unspecified (principal)

== ENCOUNTER 2024-08-29 10:51 | Emergency (ER) | payer MEDICARE, MEDICAID ==
[~2024-08-29] VITALS: Ht 162.6 cm; Wt 97.4 kg
[2024-08-29] MEDS: NS (Normal Saline) 0.9% 1,000 ML IV ONE (13:59)
[2024-08-29] MEDS: diphenhydrAMINE 50MG/ML VIAL IV ONE (13:59)
[2024-08-29] MEDS: KETOROLAC 30 MG/ML 1ML VIAL IV ONE (13:59)
[2024-08-29] MEDS: METOCLOPRAMIDE INJ 10MG/2ML VIAL IV ONE (13:59)
[2024-08-29 14:03] LABS: HEMOGLOBIN 13.2 g/dl (12.0-15.5); MEAN CORPUSCULAR HEMOGLOBIN 26.9 pg (27.0-33.0); MEAN CORPUSCULAR VOLUME 81.5 fl (80.0-96.0); PLATELET COUNT, AUTOMATED 272 10^3/uL (150-450); RED BLOOD COUNT 4.91 10^6/uL (4.00-5.40); WHITE BLOOD COUNT 9.3 10^3/uL (4.0-10.0)
[2024-08-29 14:28] LABS: BLOOD UREA NITROGEN 7 MG/DL (9-23); CALCIUM LEVEL 8.5 MG/DL (8.5-10.1); CARBON DIOXIDE LEVEL 30 MMOL/L (20-31); CHLORIDE LEVEL 105 MMOL/L (98-107); CREATININE FOR GFR 0.68 MG/DL (0.55-1.30); GLOMERULAR FILTRATION RATE > 60.0 (>58); GLUCOSE, FASTING 94 MG/DL (60-100); POTASSIUM SERUM 4.2 MMOL/L (3.5-5.1); SODIUM LEVEL 144 MMOL/L (136-145)
[2024-08-29 14:57] LABS: KETONE, URINE AUTO RFX NEGATIVE (NEGATIVE); MUCUS, URINE RFX SMALL (NEGATIVE); NITRITE, URINE AUTO RFX NEGATIVE (NEGATIVE); RBC, URINE AUTO RFX 1 /HPF (0-3); SQUAM EPITHELIAL CELL UR AURFX 3 /HPF (0-6); WBC, URINE AUTO RFX 1 /HPF (0-3)
[2024-08-29 14:59] LABS: LEUKOCYTE ESTERASE UR AUTO RFX 2+ (NEGATIVE)
[2024-08-29] MEDS ORDERED: REGL10TA6 PO (15:22)
[2024-08-29 15:25] VITALS: BP 138/87; TEMP 96.4; O2SAT 100
== END 2024-08-29 15:45 | disposition home or self-care (01) ==
LOC: M ED 10:51
DX: R51.9 Headache, unspecified (principal); N39.0 Urinary tract infection, site not specified; Z88.0 Allergy status to penicillin
CPT/HCPCS: 80048; 81001; 85027; 87086; 87486; 87581; 87633; 87798; 96374; 96375; 99284; J1200; J1885; J2765

== ENCOUNTER 2024-09-11 23:51 | Emergency (ER) | payer MEDICARE, MEDICAID ==
[~2024-09-11] VITALS: Ht 162.6 cm; Wt 98.1 kg
[~2024-09-11 23:51] MED LIST changes: +REGL10TA6 PO
[2024-09-12] MEDS: ACETAMINOPHEN 500 MG TAB PO ONE (01:45)
[2024-09-12] MEDS: NS (Normal Saline) 0.9% 1,000 ML IV ONE (01:46)
[2024-09-12] MEDS: METOCLOPRAMIDE INJ 10MG/2ML VIAL IV ONE (01:53)
[2024-09-12] MEDS: KETOROLAC 30 MG/ML 1ML VIAL IV ONE (01:54)
[2024-09-12 02:17] VITALS: BP 111/55; O2SAT 98
[2024-09-12 02:30] VITALS: TEMP 98.4
== END 2024-09-12 02:34 | disposition home or self-care (01) ==
LOC: M ED 23:51
DX: G43.909 Migraine, unspecified, not intractable, without status migrainosus (principal); E11.9 Type 2 diabetes mellitus without complications; I10 Essential (primary) hypertension; M54.30 Sciatica, unspecified side; Z88.0 Allergy status to penicillin
CPT/HCPCS: 84702; 96361; 96374; 96375; 99284; J1885; J2765

== ENCOUNTER 2025-01-22 18:04 | Emergency (ER) | payer MEDICARE, MEDICAID ==
[~2025-01-22] VITALS: Ht 162.6 cm; Wt 92.5 kg
[~2025-01-22 18:04] MED LIST changes: -AMBI5TAB PO; +ZOLP-532 PO
[2025-01-22 19:30] LABS: BASO # 0.0 10^3/uL (0.0-0.2); BASO % 0.4 % (0.0-1.0); EOS # 0.2 10^3/uL (0.0-0.5); EOS % 1.5 % (0.0-3.0); LYMPH # 2.4 10^3/uL (1.5-5.0); LYMPH % 21.9 % (24.0-44.0); MONO # 0.7 10^3/uL (0.0-0.8); MONO % 6.2 % (2.0-8.0); NEUTROPHILS # 7.7 10^3/uL (1.5-8.5); NEUTROPHILS % 69.5 % (36.0-66.0); PLATELET COUNT, AUTOMATED 240 10^3/uL (150-450)
[2025-01-22 19:59] LABS: ALT/SGPT 26 U/L (7.0-40); AST/SGOT 27 U/L (<34); CALCIUM LEVEL 8.9 MG/DL (8.5-10.1); CARBON DIOXIDE LEVEL 29 MMOL/L (20-31); CHLORIDE LEVEL 105 MMOL/L (98-107); CREATININE FOR GFR 0.69 MG/DL (0.55-1.30); GLOMERULAR FILTRATION RATE > 90.0 (>58); POTASSIUM SERUM 4.0 MMOL/L (3.5-5.1); SODIUM LEVEL 145 MMOL/L (136-145)
[2025-01-22 20:05] LABS: HCG, SERUM QUALITATIVE NEGATIVE (NEGATIVE)
[2025-01-22 22:52] LABS: MAGNESIUM LEVEL 2.1 MG/DL (1.8-2.4)
[2025-01-22] MEDS: KETOROLAC 30 MG/ML 1 ML VIAL IV ONE (22:52)
[2025-01-22] MEDS: ONDANSETRON 4MG 2ML VIAL IV ONE (22:52)
[2025-01-22] MEDS: ACETAMINOPHEN *IV* 1,000 MG in IV 1 EA IV ONE (22:53)
[2025-01-22] MEDS: NS (Normal Saline) 0.9% 1,000 ML IV ONE (22:53)
[2025-01-23 01:41] VITALS: BP 131/65; TEMP 96.6; O2SAT 96
== END 2025-01-23 01:51 | disposition home or self-care (01) ==
LOC: M ED 18:04
DX: G43.909 Migraine, unspecified, not intractable, without status migrainosus (principal); E86.0 Dehydration; J44.9 Chronic obstructive pulmonary disease, unspecified; F41.9 Anxiety disorder, unspecified; F43.10 Post-traumatic stress disorder, unspecified; F31.30 Bipolar disorder, current episode depressed, mild or moderate severity, unspecified; Z88.0 Allergy status to penicillin
CPT/HCPCS: 70450; 80048; 80076; 83690; 83735; 84443; 84703; 85025; 87486; 87581; 87633; 87798; 96361; 96365; 96375; 99284; J0131; J1885; J2405

== ENCOUNTER 2025-02-20 10:32 | Emergency (ER) | payer MEDICARE, MEDICAID ==
[~2025-02-20] VITALS: Ht 162.6 cm; Wt 91.7 kg
[~2025-02-20 10:32] MED LIST changes: -IBUP-1022 PO; +IBUP600T42 PO
[2025-02-20 11:18] LABS: PLATELET COUNT, AUTOMATED 309 10^3/uL (150-450)
[2025-02-20 11:40] LABS: BARBITURATES URINE NEGATIVE (NEGATIVE); BENZODIAZEPINES URINE NEGATIVE (NEGATIVE); COCAINE METABOLITE URINE NEGATIVE (NEGATIVE); METHADONE URINE NEGATIVE (NEGATIVE); OPIATES URINE NEGATIVE (NEGATIVE); PHENCYCLIDINE URINE NEGATIVE (NEGATIVE)
[2025-02-20 11:41] LABS: CANNABINOIDS URINE NEGATIVE (NEGATIVE)
[2025-02-20 11:43] LABS: ETHYL ALCOHOL (ETHANOL) 0.004 % (0.000-0.010); HCG, SERUM QUALITATIVE NEGATIVE (NEGATIVE); SALICYLATE LEVEL < 3.0 MG/DL (<30)
[2025-02-20 11:44] LABS: ALT/SGPT 21 U/L (7.0-40); AST/SGOT 24 U/L (<34); CALCIUM LEVEL 9.3 MG/DL (8.5-10.1); CARBON DIOXIDE LEVEL 28 MMOL/L (20-31); CHLORIDE LEVEL 101 MMOL/L (98-107); CREATININE FOR GFR 0.66 MG/DL (0.55-1.30); GLOMERULAR FILTRATION RATE > 90.0 (>58); POTASSIUM SERUM 3.7 MMOL/L (3.5-5.1); SODIUM LEVEL 141 MMOL/L (136-145)
[2025-02-20 11:46] LABS: AMPHETAMINES LEVEL URINE POSITIVE (NEGATIVE)
[2025-02-20 14:14] VITALS: BP 148/88; TEMP 97.8; O2SAT 96
== END 2025-02-20 14:16 | disposition home or self-care (01) ==
LOC: M ED 10:32
DX: F15.10 Other stimulant abuse, uncomplicated (principal); F43.0 Acute stress reaction; F31.30 Bipolar disorder, current episode depressed, mild or moderate severity, unspecified; F43.10 Post-traumatic stress disorder, unspecified; J44.9 Chronic obstructive pulmonary disease, unspecified; F17.200 Nicotine dependence, unspecified, uncomplicated

== ENCOUNTER 2025-02-27 15:11 | Emergency (ER) | payer MEDICARE, MEDICAID ==
[~2025-02-27] VITALS: Ht 162.6 cm; Wt 94.3 kg
[2025-02-27 16:40] LABS: KETONE, URINE AUTO RFX NEGATIVE (NEGATIVE); LEUKOCYTE ESTERASE UR AUTO RFX NEGATIVE (NEGATIVE); MUCUS, URINE RFX SMALL (NEGATIVE); NITRITE, URINE AUTO RFX NEGATIVE (NEGATIVE); RBC, URINE AUTO RFX 0 /HPF (0-3); SQUAM EPITHELIAL CELL UR AURFX 2 /HPF (0-6); WBC, URINE AUTO RFX 4 /HPF (0-3)
[2025-02-27 16:43] LABS: BASO # 0.1 10^3/uL (0.0-0.2); BASO % 0.5 % (0.0-1.0); EOS # 0.1 10^3/uL (0.0-0.5); EOS % 1.0 % (0.0-3.0); LYMPH # 3.1 10^3/uL (1.5-5.0); LYMPH % 31.3 % (24.0-44.0); MONO # 0.6 10^3/uL (0.0-0.8); MONO % 5.9 % (2.0-8.0); NEUTROPHILS # 6.1 10^3/uL (1.5-8.5); NEUTROPHILS % 60.9 % (36.0-66.0); PLATELET COUNT, AUTOMATED 264 10^3/uL (150-450)
[2025-02-27 17:03] LABS: HCG, SERUM QUALITATIVE NEGATIVE (NEGATIVE)
[2025-02-27 17:07] LABS: ALT/SGPT 14 U/L (7.0-40); AST/SGOT 23 U/L (<34); CALCIUM LEVEL 8.2 MG/DL (8.5-10.1); CARBON DIOXIDE LEVEL 28 MMOL/L (20-31); CHLORIDE LEVEL 104 MMOL/L (98-107); CREATININE FOR GFR 0.67 MG/DL (0.55-1.30); GLOMERULAR FILTRATION RATE > 90.0 (>58); POTASSIUM SERUM 4.1 MMOL/L (3.5-5.1); SODIUM LEVEL 142 MMOL/L (136-145)
[2025-02-27] MEDS: NS 500 ML IV ONE (17:24)
[2025-02-27] MEDS: diphenhydrAMINE 50 MG/ML VIAL IV ONE (17:26)
[2025-02-27] MEDS: KETOROLAC 30 MG/ML 1 ML VIAL IV ONE (17:27)
[2025-02-27] MEDS ORDERED: ISOVUE-370 76% 100 ML VIAL As Ordered ONE (17:52)
[2025-02-27 18:06] VITALS: TEMP 98.4
[2025-02-27 19:01] VITALS: BP 95/52
[2025-02-27 19:06] VITALS: O2SAT 97
== END 2025-02-27 19:18 | disposition left against medical advice (07) ==
LOC: M ED 15:11
DX: R51.9 Headache, unspecified (principal); N83.291 Other ovarian cyst, right side; K76.0 Fatty (change of) liver, not elsewhere classified; M51.35 Other intervertebral disc degeneration, thoracolumbar region; Z88.0 Allergy status to penicillin
CPT/HCPCS: 36415; 74177; 80053; 81001; 83605; 83690; 84703; 85025; 99284; J1200; J1885; J2765; Q9967

== ENCOUNTER → 2025-05-16 | Outpatient (REF) | payer MEDICARE, MEDICAID ==
[2025-05-16 15:26] LABS: BASO # 0.1 10^3/uL (0.0-0.2); BASO % 0.7 % (0.0-1.0); EOS # 0.2 10^3/uL (0.0-0.5); EOS % 1.7 % (0.0-3.0); LYMPH # 3.3 10^3/uL (1.5-5.0); LYMPH % 33.2 % (24.0-44.0); MONO # 0.6 10^3/uL (0.0-0.8); MONO % 6.1 % (2.0-8.0); NEUTROPHILS # 5.8 10^3/uL (1.5-8.5); NEUTROPHILS % 57.7 % (36.0-66.0); PLATELET COUNT, AUTOMATED 293 10^3/uL (150-450)
[2025-05-16 15:29] LABS: HIV 1&2 SCREEN NEGATIVE (NEGATIVE)
[2025-05-16 15:37] LABS: HEPATITIS C VIRUS ABY INDEX < 0.02 INDEX (<0.8)
[2025-05-16 15:40] LABS: ESTIMATED AVERAGE GLUCOSE 103.0 MG/DL (60-110)
[2025-05-16 15:41] LABS: ALT/SGPT 18 U/L (7.0-40); AST/SGOT 28 U/L (<34); CALCIUM LEVEL 8.5 MG/DL (8.5-10.1); CARBON DIOXIDE LEVEL 30 MMOL/L (20-31); CHLORIDE LEVEL 98 MMOL/L (98-107); CHOLESTEROL LEVEL 378 MG/DL (<200); CHOLESTEROL RISK RATIO 16.36 (<5); CREATININE FOR GFR 0.50 MG/DL (0.55-1.30); GLOMERULAR FILTRATION RATE > 90.0 (>58); NON-HDL-C 354.9 MG/DL; POTASSIUM SERUM 4.1 MMOL/L (3.5-5.1); SODIUM LEVEL 137 MMOL/L (136-145); TRIGLYCERIDES LEVEL 3281 MG/DL (<150)
[2025-05-16 16:20] LABS: CA 125 7.0 U/ML (<35)
== END ==
LOC: M LAB REF 13:43
PROVIDERS: ATTEND Pediatrics
DX: E66.9 Obesity, unspecified (principal); E03.9 Hypothyroidism, unspecified; Z11.59 Encounter for screening for other viral diseases; R73.03 Prediabetes; N83.8 Other noninflammatory disorders of ovary, fallopian tube and broad ligament